=== PATIENT | female | born 1980 ===

== ENCOUNTER 2022-05-18 18:06 | Inpatient (IN) | payer OTHER, SELFPAY ==
--- NOTE | ~2022-05-18 | XR_ITS ---
EXAMINATION: XR ABDOMEN KUB CLINICAL INDICATION: Constipation COMPARISON: None TECHNIQUE: AP view of the abdomen. FINDINGS: There is large amount of stool in colon without distention. The gallbladder has been surgically removed. There is no organomegaly. There is no free air or free fluid. No gross bony abnormality. XR/XR KUB IMPRESSION: Moderate to significant constipation. No acute process seen.
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
[2022-05-18] MEDS: Gabapentin 400 MG CAPSULE 800 MG PO (21:41)
[2022-05-18] MEDS: QUEtiapine Fumarate 100 MG TABLET PO (21:41)
[2022-05-18] MEDS: Ibuprofen 600 MG TABLET PO (21:42)
[2022-05-18] MEDS: OXcarbazepine 300 MG TABLET 600 MG PO (21:42)
[2022-05-18] MEDS: Baclofen 10 MG TABLET PO (21:42)
[2022-05-18] MEDS: Topiramate 25 MG TABLET 50 MG PO (21:42)
[2022-05-18] MEDS: clonazePAM 1 MG TABLET PO (21:42)
[2022-05-18 21:53] LABS: Glucose, Whole Blood 163 mg/dL (60-115)
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
[2022-05-19 08:00] VITALS: BP 125/58; PULSE 60; RESP 18; TEMP 36.6; O2SAT 96
[2022-05-19 09:05] LABS: Glucose, Whole Blood 124 mg/dL (60-115)
--- NOTE | 2022-05-19 09:10 | HE.PHANOTE ---
RE METHADONE FORM RECEIVED FROM [facility]
[2022-05-19] MEDS: Baclofen 10 MG TABLET PO ×3 (09:34→21:06)
[2022-05-19] MEDS: Oxymetazoline HCl 0.05 % Nasal 15 ML SPRAY 2 SPRAY NOSTRIL-B (09:34)
[2022-05-19] MEDS: OXcarbazepine 300 MG TABLET 600 MG PO ×2 (09:36→21:05)
[2022-05-19] MEDS: Gabapentin 400 MG CAPSULE 800 MG PO ×3 (09:36→21:05)
[2022-05-19] MEDS: Topiramate 25 MG TABLET 50 MG PO ×2 (09:37→21:06)
[2022-05-19] MEDS: Sertraline HCL 100 MG TABLET PO (09:38)
[2022-05-19] MEDS: clonazePAM 1 MG TABLET PO ×3 (09:38→21:06)
[2022-05-19] MEDS: metFORMIN HCl 1,000 MG TABLET 1000 MG PO ×2 (09:39→16:00)
[2022-05-19] MEDS: methADONE HCl 20 MG/2 ML ORAL.CONC 125 MG PO (09:40)
[2022-05-19 09:43] LABS: Estimated Average Glucose 246 mg/dL; Hemoglobin A1c % 10.2 %
[2022-05-19 10:04] LABS: Cholesterol 95 mg/dL; HDL Cholesterol 23 mg/dL; LDL Cholesterol Calculated 57 mg/dl; Magnesium 1.8 mg/dL (1.6-2.6); Triglycerides 79 mg/dL
[2022-05-19 10:20] LABS: Free T4 (Free Thyroxine) 0.85 ng/dL (0.71-1.85)
[2022-05-19 10:52] LABS: Folate 13.1 ng/mL (> or = 4.0); Vitamin B12 1025 pg/mL (200-900)
[2022-05-19] MEDS: Ibuprofen 600 MG TABLET PO (11:09)
--- NOTE | 2022-05-19 11:47 | PC.NURSE ---
Pt was offered flu vaccine this am, and refused. States I don't want it
[2022-05-19 12:11] LABS: Glucose, Whole Blood 252 mg/dL (60-115)
[2022-05-19] MEDS: Rivaroxaban 20 MG TABLET PO (12:22)
[2022-05-19] MEDS: Insulin Glargine,Hum.rec.anlog 100 UNIT/ML 10 ML VIAL 30 UNIT SUBCUT (12:30)
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
[2022-05-19] MEDS: Nicotine Polacrilex 2 MG GUM BUCCAL (16:01)
[2022-05-19] MEDS: Insulin Lispro 100 UNIT/ML 3 ML VIAL SUBCUT ×2 (17:25→21:06)
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
[2022-05-19 20:45] VITALS: BP 120/64; PULSE 53; RESP 16; TEMP 36.3; O2SAT 98
[2022-05-19 20:55] LABS: Glucose, Whole Blood 185 mg/dL (60-115)
[2022-05-19 20:55] LABS: Glucose, Whole Blood 187 mg/dL (60-115)
[2022-05-19] MEDS: Insulin Glargine,Hum.rec.anlog 100 UNIT/ML 10 ML VIAL 16 UNIT SUBCUT (21:17)
[2022-05-20 08:20] LABS: Glucose, Whole Blood 169 mg/dL (60-115)
[2022-05-20 08:55] VITALS: BP 122/64; PULSE 70; RESP 18; TEMP 36.7; O2SAT 98
[2022-05-20] MEDS: Ondansetron ODT 4 MG TAB.RAPDIS TRANSLINGU (08:59)
[2022-05-20] MEDS: methADONE HCl 20 MG/2 ML ORAL.CONC 125 MG PO (09:02)
[2022-05-20] MEDS: Rivaroxaban 20 MG TABLET PO (09:04)
[2022-05-20] MEDS: clonazePAM 1 MG TABLET PO ×3 (09:04→21:04)
[2022-05-20] MEDS: Sertraline HCL 100 MG TABLET PO (09:04)
[2022-05-20] MEDS: Topiramate 25 MG TABLET 50 MG PO ×2 (09:05→21:04)
[2022-05-20] MEDS: metFORMIN HCl 1,000 MG TABLET 1000 MG PO ×2 (09:05→17:01)
[2022-05-20] MEDS: Baclofen 10 MG TABLET PO ×3 (09:05→21:04)
[2022-05-20] MEDS: Gabapentin 400 MG CAPSULE 800 MG PO ×3 (09:06→21:04)
[2022-05-20] MEDS: OXcarbazepine 300 MG TABLET 600 MG PO ×2 (09:06→21:04)
[2022-05-20] MEDS: Insulin Lispro 100 UNIT/ML 3 ML VIAL SUBCUT ×2 (09:16→17:16)
[2022-05-20] MEDS: Insulin Glargine,Hum.rec.anlog 100 UNIT/ML 10 ML VIAL 30 UNIT SUBCUT (09:17)
[2022-05-20 09:26] LABS: Anion Gap 12 (12-20); Blood Urea Nitrogen 8 mg/dL (9-16); Calcium 9.5 mg/dL (8.4-10.2); Carbon Dioxide 28 mmol/L (22-29); Chloride 103 mmol/L (96-108); Estimated Glomerular Filt Rate > 60; Glucose Random 153 mg/dL (60-115); Potassium 4.7 mmol/L (3.3-5.1); Sodium 138 mmol/L (135-145)
[2022-05-20] MEDS: Lactulose 20 GM/30 ML SOLUTION PO (10:14)
[2022-05-20] MEDS: Oxymetazoline HCl 0.05 % Nasal 15 ML SPRAY 2 SPRAY NOSTRIL-B (10:14)
[2022-05-20] MEDS: Ibuprofen 600 MG TABLET PO (10:14)
[2022-05-20 12:13] LABS: Glucose, Whole Blood 140 mg/dL (60-115)
[2022-05-20 12:14] LABS: HBS Num1 207.46 mIU/mL (0-7.99); HBc Num1 2.88 S/CO (0.00-0.79); HBsAGNum1 0.26 S/CO (0.00-0.99); Hepatitis B Surface Antigen Negative (Negative); ~HepC Num1 8.56 S/CO (0.00-0.79); ~Hepatitis B Surface Antibody REACTIVE (Nonreactive); ~Hepatitis C Antibody Reactive (Nonreactive)
[2022-05-20 12:30] VITALS: BP 126/65; PULSE 57; RESP 18; O2SAT 94
--- NOTE | 2022-05-20 12:38 | PC.NURSE ---
Patient bright, alert, on awakening. Began reporting some abdominal discomfort, hot flashes, and appears more sedated at this time. Repeat vitals, blood sugar checked, patient encouraged to rest in bed, which she is doing. Pranay Winters notified of change in presentation.
[2022-05-20 13:48] LABS: HBc Num2 3.27 S/CO; HBc Num3 3.38 S/CO; Hepatitis B Core Antibody Reactive (Nonreactive)
--- NOTE | 2022-05-20 15:41 | PC.NURSE ---
Мария Talley assuming patient's care.
[2022-05-20 17:11] LABS: Glucose, Whole Blood 227 mg/dL (60-115)
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
[2022-05-20] MEDS: Nicotine Polacrilex 2 MG GUM BUCCAL (18:26)
[2022-05-20 20:45] VITALS: BP 127/68; PULSE 54; RESP 16; TEMP 35.8; O2SAT 96
[2022-05-20] MEDS: QUEtiapine Fumarate 50 MG TABLET PO (21:04)
[2022-05-20 21:36] LABS: Glucose, Whole Blood 94 mg/dL (60-115)
[2022-05-21 09:02] LABS: Glucose, Whole Blood 106 mg/dL (60-115)
[2022-05-21 10:15] VITALS: BP 112/53; PULSE 53; RESP 18; TEMP 36.4; O2SAT 97
[2022-05-21] MEDS: clonazePAM 1 MG TABLET PO ×3 (10:21→21:21)
[2022-05-21] MEDS: Lactulose 20 GM/30 ML SOLUTION PO (10:21)
[2022-05-21] MEDS: Sertraline HCL 50 MG TABLET 150 MG PO (10:21)
[2022-05-21] MEDS: Topiramate 25 MG TABLET 50 MG PO ×2 (10:22→21:21)
[2022-05-21] MEDS: Gabapentin 400 MG CAPSULE 800 MG PO (10:22)
[2022-05-21] MEDS: Rivaroxaban 20 MG TABLET PO (10:22)
[2022-05-21] MEDS: OXcarbazepine 300 MG TABLET 600 MG PO ×2 (10:22→21:21)
[2022-05-21] MEDS: metFORMIN HCl 1,000 MG TABLET 1000 MG PO ×2 (10:22→18:07)
[2022-05-21] MEDS: Insulin Glargine,Hum.rec.anlog 100 UNIT/ML 10 ML VIAL 30 UNIT SUBCUT ×2 (10:26→21:27)
[2022-05-21] MEDS: Baclofen 10 MG TABLET PO ×3 (10:30→21:21)
[2022-05-21] MEDS: methADONE HCl 20 MG/2 ML ORAL.CONC 120 MG PO (11:18)
[2022-05-21] MEDS: Oxymetazoline HCl 0.05 % Nasal 15 ML SPRAY 2 SPRAY NOSTRIL-B (11:23)
[2022-05-21] MEDS: Acetaminophen 325 MG TABLET 650 MG PO (11:43)
[2022-05-21] MEDS: Ondansetron ODT 4 MG TAB.RAPDIS TRANSLINGU (11:43)
--- NOTE | 2022-05-21 12:14 | PM.EVENT ---
Event Note Date of Service: 05/21/22 Event Note: This lead technical writer called, pt has been presenting as sedated on and off during the day. She is currently on several sedating medications including methadone 125mg po daily, clonazepam 1mg po TID, Gabapentin 800mg po TID, trileptal 600mg po BID, topamax 50mg po BID. Consult was sent to addition specialist to consider decreasing methadone. This lead technical writer spoke with Brittany Chiu APRN shipping and receiving specialist- recommeds trying to decrease other medications such as gabapentin, consider reduction of clonazepam (although pt against it). Pt reports benefit from methadone, which apparently has decreased her opioid use. Pt agrees to lower gabapentin to 600mg po TID. Pt educated on risk of increase respiratory suppression specially with combination of methadone, gabapentin and clonazepam. Per Brittany Chiu, and this lead technical writer in agreement, try to keep methadone dose at current dose and decrease other sedating medications- mainly gabapentin and clonazepam but also consider trileptal and topamax (pt on 3 mood stabilizer at this point for different indications, but nonetheless sedating and interacting). PLAN- resume methadone 120mg po daily, decrease gabapentin to 600mg po TID, pt will meet with primary attending later today to further manage medications.
[2022-05-21 12:31] LABS: Glucose, Whole Blood 248 mg/dL (60-115)
[2022-05-21] MEDS: Insulin Lispro 100 UNIT/ML 3 ML VIAL SUBCUT ×3 (13:15→21:26)
[2022-05-21 13:32] LABS: Amphetamine Screen Urine Not Detected (Not Detect); Barbiturates, Urine Not Detected (Not Detect); Benzodiazepines Screen Urine POSITIVE (Not Detect); Cannabinoid Screen Urine POSITIVE (Not Detect); Cocaine Screen Urine Not Detected (Not Detect); Fentanyl, urine Not Detected (Not Detect); Opiate Screen Urine Not Detected (Not Detect); Phencyclidine Screen Urine Not Detected (Not Detect)
[2022-05-21 17:58] LABS: Glucose, Whole Blood 157 mg/dL (60-115)
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
[2022-05-21 21:09] LABS: Glucose, Whole Blood 158 mg/dL (60-115)
[2022-05-21 21:20] VITALS: BP 113/59; PULSE 63; RESP 16; TEMP 36.4; O2SAT 96
[2022-05-21] MEDS: QUEtiapine Fumarate 50 MG TABLET PO (21:21)
[2022-05-21] MEDS: cloNIDine HCL 0.1 MG TABLET PO (21:21)
[2022-05-21] MEDS: Docusate Sodium 100 MG CAPSULE PO (21:21)
[2022-05-21] MEDS: Gabapentin 300 MG CAPSULE 600 MG PO (21:21)
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
[2022-05-22 06:07] LABS: Hepatitis B Core Antibody IgM NON-REACTIVE (NON-REACTIVE)
[2022-05-22 08:31] LABS: Glucose, Whole Blood 134 mg/dL (60-115)
[2022-05-22] MEDS: Sertraline HCL 50 MG TABLET 150 MG PO (09:36)
[2022-05-22] MEDS: Lactulose 20 GM/30 ML SOLUTION PO ×2 (09:36→16:57)
[2022-05-22] MEDS: Rivaroxaban 20 MG TABLET PO (09:36)
[2022-05-22] MEDS: OXcarbazepine 300 MG TABLET 600 MG PO ×2 (09:36→21:23)
[2022-05-22] MEDS: Baclofen 10 MG TABLET PO ×3 (09:36→21:23)
[2022-05-22] MEDS: clonazePAM 1 MG TABLET PO ×3 (09:36→21:23)
[2022-05-22] MEDS: Topiramate 25 MG TABLET 50 MG PO ×2 (09:36→21:23)
[2022-05-22] MEDS: Docusate Sodium 100 MG CAPSULE PO ×2 (09:37→21:23)
[2022-05-22] MEDS: Gabapentin 300 MG CAPSULE 600 MG PO ×3 (09:37→21:23)
[2022-05-22] MEDS: methADONE HCl 20 MG/2 ML ORAL.CONC 120 MG PO (09:37)
[2022-05-22] MEDS: metFORMIN HCl 1,000 MG TABLET 1000 MG PO ×2 (09:38→16:57)
[2022-05-22] MEDS: Insulin Glargine,Hum.rec.anlog 100 UNIT/ML 10 ML VIAL 30 UNIT SUBCUT ×2 (09:50→21:26)
[2022-05-22 10:14] VITALS: BP 112/57; PULSE 52; RESP 15; TEMP 36.6; O2SAT 95
[2022-05-22 12:23] LABS: Glucose, Whole Blood 154 mg/dL (60-115)
[2022-05-22] MEDS: Insulin Lispro 100 UNIT/ML 3 ML VIAL SUBCUT (12:25)
[2022-05-22 16:30] VITALS: BP 116/56; PULSE 57; RESP 16; TEMP 36.2; O2SAT 99
[2022-05-22] MEDS: guaiFENesin DM 600/30 1 TAB TAB.ER.12H 2 TAB PO (16:56)
[2022-05-22 17:18] LABS: Glucose, Whole Blood 185 mg/dL (60-115)
[2022-05-22 18:52] VITALS: BP 114/65; PULSE 57; RESP 16; TEMP 36.4
[2022-05-22 21:15] LABS: Glucose, Whole Blood 103 mg/dL (60-115)
[2022-05-22] MEDS: Doxepin HCl 25 MG CAPSULE 50 MG PO (21:22)
[2022-05-22] MEDS: cloNIDine HCL 0.1 MG TABLET PO (21:23)
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
[2022-05-23 08:38] LABS: Glucose, Whole Blood 91 mg/dL (60-115)
[2022-05-23 09:00] VITALS: BP 94/50; PULSE 57; TEMP 36.1; O2SAT 97
[2022-05-23] MEDS: methADONE HCl 20 MG/2 ML ORAL.CONC 125 MG PO (09:29)
[2022-05-23] MEDS: Insulin Glargine,Hum.rec.anlog 100 UNIT/ML 10 ML VIAL 30 UNIT SUBCUT ×2 (09:32→21:31)
[2022-05-23] MEDS: Docusate Sodium 100 MG CAPSULE PO ×2 (09:34→21:27)
[2022-05-23] MEDS: Gabapentin 300 MG CAPSULE 600 MG PO ×3 (09:34→21:28)
[2022-05-23] MEDS: Topiramate 25 MG TABLET 50 MG PO ×2 (09:35→21:27)
[2022-05-23] MEDS: metFORMIN HCl 1,000 MG TABLET 1000 MG PO ×2 (09:35→18:09)
[2022-05-23] MEDS: Rivaroxaban 20 MG TABLET PO (09:36)
[2022-05-23] MEDS: Baclofen 10 MG TABLET PO ×3 (09:36→21:28)
[2022-05-23] MEDS: Sertraline HCL 50 MG TABLET 150 MG PO (09:37)
[2022-05-23] MEDS: OXcarbazepine 300 MG TABLET 600 MG PO ×2 (09:37→21:28)
[2022-05-23] MEDS: clonazePAM 1 MG TABLET PO ×3 (09:38→21:43)
[2022-05-23] MEDS: Ondansetron ODT 4 MG TAB.RAPDIS TRANSLINGU (11:08)
[2022-05-23 11:46] VITALS: BP 121/64
[2022-05-23 13:07] LABS: Glucose, Whole Blood 203 mg/dL (60-115)
[2022-05-23] MEDS: Insulin Lispro 100 UNIT/ML 3 ML VIAL SUBCUT ×3 (13:23→21:32)
[2022-05-23] MEDS: Milk of Magnesia 30 ML ORAL.SUSP PO (16:22)
[2022-05-23 17:47] LABS: Glucose, Whole Blood 195 mg/dL (60-115)
[2022-05-23 20:15] VITALS: BP 113/62; PULSE 60; RESP 12; TEMP 36.2; O2SAT 96
[2022-05-23 21:20] LABS: Glucose, Whole Blood 261 mg/dL (60-115)
[2022-05-23] MEDS: Doxepin HCl 25 MG CAPSULE 50 MG PO (21:27)
[2022-05-23] MEDS: cloNIDine HCL 0.1 MG TABLET PO (21:27)
[2022-05-24] MEDS: Ibuprofen 600 MG TABLET PO ×2 (02:20→11:50)
[2022-05-24] MEDS: guaiFENesin DM 600/30 1 TAB TAB.ER.12H 2 TAB PO (04:11)
[2022-05-24 08:43] LABS: Glucose, Whole Blood 172 mg/dL (60-115)
[2022-05-24 09:00] VITALS: BP 98/57; PULSE 53; RESP 18; TEMP 36.4; O2SAT 97
[2022-05-24] MEDS: Gabapentin 300 MG CAPSULE 600 MG PO ×3 (09:11→21:48)
[2022-05-24] MEDS: OXcarbazepine 300 MG TABLET 600 MG PO ×2 (09:12→21:48)
[2022-05-24] MEDS: Docusate Sodium 100 MG CAPSULE PO ×2 (09:13→21:48)
[2022-05-24] MEDS: metFORMIN HCl 1,000 MG TABLET 1000 MG PO ×2 (09:13→17:38)
[2022-05-24] MEDS: Topiramate 25 MG TABLET 50 MG PO ×2 (09:13→21:49)
[2022-05-24] MEDS: Baclofen 10 MG TABLET PO ×3 (09:14→21:49)
[2022-05-24] MEDS: Rivaroxaban 20 MG TABLET PO (09:14)
[2022-05-24] MEDS: clonazePAM 1 MG TABLET PO ×3 (09:15→21:49)
[2022-05-24] MEDS: Sertraline HCL 50 MG TABLET 150 MG PO (09:15)
[2022-05-24] MEDS: methADONE HCl 20 MG/2 ML ORAL.CONC 125 MG PO (09:16)
[2022-05-24] MEDS: Insulin Glargine,Hum.rec.anlog 100 UNIT/ML 10 ML VIAL 30 UNIT SUBCUT ×2 (09:19→21:49)
[2022-05-24] MEDS: Insulin Lispro 100 UNIT/ML 3 ML VIAL SUBCUT (09:20)
[2022-05-24 12:47] LABS: Glucose, Whole Blood 110 mg/dL (60-115)
[2022-05-24 17:15] LABS: Glucose, Whole Blood 145 mg/dL (60-115)
[2022-05-24] MEDS: Lactulose 20 GM/30 ML SOLUTION PO (17:38)
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
[2022-05-24 21:45] VITALS: BP 131/71; PULSE 78; RESP 16; TEMP 36.4; O2SAT 95
[2022-05-24 21:47] LABS: Glucose, Whole Blood 162 mg/dL (60-115)
[2022-05-24] MEDS: cloNIDine HCL 0.1 MG TABLET PO (21:48)
[2022-05-24] MEDS: Doxepin HCl 25 MG CAPSULE 75 MG PO (21:49)
[2022-05-25 06:00] VITALS: BP 110/51; PULSE 76; RESP 16; TEMP 36.6; O2SAT 100
[2022-05-25 08:38] LABS: Glucose, Whole Blood 151 mg/dL (60-115)
[2022-05-25] MEDS: Sertraline HCL 50 MG TABLET 150 MG PO (09:22)
[2022-05-25] MEDS: Baclofen 10 MG TABLET PO ×3 (09:23→22:05)
[2022-05-25] MEDS: Gabapentin 300 MG CAPSULE 600 MG PO ×3 (09:23→22:05)
[2022-05-25] MEDS: clonazePAM 1 MG TABLET PO ×3 (09:23→22:05)
[2022-05-25] MEDS: Docusate Sodium 100 MG CAPSULE PO ×2 (09:23→22:10)
[2022-05-25] MEDS: metFORMIN HCl 1,000 MG TABLET 1000 MG PO ×2 (09:23→16:29)
[2022-05-25] MEDS: OXcarbazepine 300 MG TABLET 600 MG PO ×2 (09:23→22:05)
[2022-05-25] MEDS: Rivaroxaban 20 MG TABLET PO (09:23)
[2022-05-25] MEDS: Topiramate 25 MG TABLET 50 MG PO ×2 (09:23→22:04)
[2022-05-25] MEDS: methADONE HCl 20 MG/2 ML ORAL.CONC 125 MG PO (09:24)
[2022-05-25] MEDS: Lactulose 20 GM/30 ML SOLUTION PO ×2 (09:24→16:29)
[2022-05-25] MEDS: Insulin Lispro 100 UNIT/ML 3 ML VIAL SUBCUT ×3 (09:56→18:27)
[2022-05-25] MEDS: Insulin Glargine,Hum.rec.anlog 100 UNIT/ML 10 ML VIAL 30 UNIT SUBCUT ×2 (09:57→22:08)
[2022-05-25] MEDS: Ondansetron ODT 4 MG TAB.RAPDIS TRANSLINGU (10:04)
[2022-05-25] MEDS: Ipratropium Bromide Nas 0.03 % 30 ML SPRAY 2 SPRAY NOSTRIL-B ×2 (10:37→16:21)
[2022-05-25 12:43] LABS: Glucose, Whole Blood 156 mg/dL (60-115)
[2022-05-25 18:00] LABS: Glucose, Whole Blood 170 mg/dL (60-115)
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
[2022-05-25 20:30] VITALS: BP 121/64; PULSE 79; RESP 16; TEMP 36.7; O2SAT 98
[2022-05-25] MEDS: Melatonin 3 MG TABLET 6 MG PO (22:05)
[2022-05-25] MEDS: cloNIDine HCL 0.1 MG TABLET PO (22:05)
[2022-05-25] MEDS: Doxepin HCl 25 MG CAPSULE 75 MG PO (22:05)
[2022-05-26 08:15] VITALS: BP 103/59; PULSE 52; RESP 12; TEMP 36.3; O2SAT 96
[2022-05-26] MEDS: Insulin Glargine,Hum.rec.anlog 100 UNIT/ML 10 ML VIAL 30 UNIT SUBCUT ×3 (10:17→21:10)
[2022-05-26] MEDS: Ipratropium Bromide Nas 0.03 % 30 ML SPRAY 2 SPRAY NOSTRIL-B ×2 (10:18→14:59)
[2022-05-26] MEDS: methADONE HCl 20 MG/2 ML ORAL.CONC 125 MG PO (10:20)
[2022-05-26] MEDS: Topiramate 25 MG TABLET 50 MG PO ×2 (10:25→20:57)
[2022-05-26] MEDS: Rivaroxaban 20 MG TABLET PO (10:25)
[2022-05-26] MEDS: OXcarbazepine 300 MG TABLET 600 MG PO ×2 (10:26→20:58)
[2022-05-26] MEDS: Baclofen 10 MG TABLET PO ×3 (10:26→20:58)
[2022-05-26] MEDS: clonazePAM 1 MG TABLET PO ×3 (10:27→20:58)
[2022-05-26] MEDS: metFORMIN HCl 1,000 MG TABLET 1000 MG PO ×2 (10:27→17:27)
[2022-05-26] MEDS: Gabapentin 300 MG CAPSULE 600 MG PO ×3 (10:27→20:58)
[2022-05-26] MEDS: Dextroamphetamine/Amphetamine XR 10 MG CAP.ER.24H PO (10:28)
[2022-05-26] MEDS: Docusate Sodium 100 MG CAPSULE PO ×2 (10:28→20:57)
[2022-05-26] MEDS: Sertraline HCL 50 MG TABLET 150 MG PO (10:29)
[2022-05-26 12:10] LABS: Glucose, Whole Blood 248 mg/dL (60-115)
[2022-05-26 12:10] LABS: Glucose, Whole Blood 93 mg/dL (60-115)
[2022-05-26] MEDS: Insulin Lispro 100 UNIT/ML 3 ML VIAL SUBCUT ×2 (12:15→21:03)
[2022-05-26] MEDS: Lactulose 20 GM/30 ML SOLUTION PO ×2 (12:20→17:28)
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
[2022-05-26 17:47] LABS: Glucose, Whole Blood 95 mg/dL (60-115)
[2022-05-26 20:40] VITALS: BP 120/65; PULSE 79; RESP 16; TEMP 36.4; O2SAT 97
[2022-05-26 20:48] LABS: Glucose, Whole Blood 175 mg/dL (60-115)
[2022-05-26] MEDS: cloNIDine HCL 0.1 MG TABLET PO (20:57)
[2022-05-26] MEDS: Melatonin 3 MG TABLET 6 MG PO (20:57)
[2022-05-26] MEDS: Doxepin HCl 25 MG CAPSULE 75 MG PO (20:58)
[2022-05-26] MEDS: Ibuprofen 600 MG TABLET PO (20:58)
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
[2022-05-27 08:42] LABS: Estimated Glomerular Filt Rate > 60
[2022-05-27 09:00] VITALS: BP 108/61; PULSE 51; RESP 18; TEMP 36.6; O2SAT 97
[2022-05-27 09:00] LABS: Glucose, Whole Blood 109 mg/dL (60-115)
[2022-05-27] MEDS: OXcarbazepine 300 MG TABLET 600 MG PO ×2 (09:17→22:12)
[2022-05-27] MEDS: Gabapentin 300 MG CAPSULE 600 MG PO ×3 (09:17→22:10)
[2022-05-27] MEDS: Topiramate 25 MG TABLET 50 MG PO ×2 (09:18→22:12)
[2022-05-27] MEDS: metFORMIN HCl 1,000 MG TABLET 1000 MG PO ×2 (09:18→17:58)
[2022-05-27] MEDS: Sertraline HCL 50 MG TABLET 150 MG PO (09:19)
[2022-05-27] MEDS: Dextroamphetamine/Amphetamine XR 10 MG CAP.ER.24H PO (09:19)
[2022-05-27] MEDS: Rivaroxaban 20 MG TABLET PO (09:20)
[2022-05-27] MEDS: Baclofen 10 MG TABLET PO ×3 (09:20→22:09)
[2022-05-27] MEDS: clonazePAM 1 MG TABLET PO ×3 (09:20→22:10)
[2022-05-27] MEDS: Docusate Sodium 100 MG CAPSULE PO ×2 (09:20→22:10)
[2022-05-27] MEDS: methADONE HCl 20 MG/2 ML ORAL.CONC 125 MG PO (09:26)
[2022-05-27] MEDS: Insulin Glargine,Hum.rec.anlog 100 UNIT/ML 10 ML VIAL 30 UNIT SUBCUT ×2 (09:33→22:15)
[2022-05-27 12:10] LABS: Glucose, Whole Blood 211 mg/dL (60-115)
[2022-05-27] MEDS: Insulin Lispro 100 UNIT/ML 3 ML VIAL SUBCUT ×3 (12:57→22:13)
[2022-05-27 17:15] LABS: Glucose, Whole Blood 211 mg/dL (60-115)
[2022-05-27] MEDS: Lactulose 20 GM/30 ML SOLUTION PO (17:58)
[2022-05-27 19:57] VITALS: BP 129/70; PULSE 84; RESP 16; TEMP 36.7; O2SAT 98
[2022-05-27 21:23] LABS: Glucose, Whole Blood 199 mg/dL (60-115)
[2022-05-27] MEDS: cloNIDine HCL 0.1 MG TABLET PO (22:10)
[2022-05-27] MEDS: Doxepin HCl 25 MG CAPSULE 75 MG PO (22:11)
[2022-05-27] MEDS: Melatonin 3 MG TABLET 6 MG PO (22:12)
[2022-05-27] MEDS: Ipratropium Bromide Nas 0.03 % 30 ML SPRAY 2 SPRAY NOSTRIL-B (22:18)
[2022-05-27 22:25] VITALS: BP 126/68; PULSE 80; RESP 16
[2022-05-28 06:00] VITALS: BP 126/70; PULSE 80; RESP 18; TEMP 36.8; O2SAT 98
[2022-05-28 09:13] LABS: Glucose, Whole Blood 156 mg/dL (60-115)
[2022-05-28] MEDS: methADONE HCl 20 MG/2 ML ORAL.CONC 125 MG PO (09:18)
[2022-05-28] MEDS: Insulin Glargine,Hum.rec.anlog 100 UNIT/ML 10 ML VIAL 30 UNIT SUBCUT ×2 (09:21→20:28)
[2022-05-28] MEDS: Baclofen 10 MG TABLET PO ×3 (09:22→21:59)
[2022-05-28] MEDS: Dextroamphetamine/Amphetamine XR 10 MG CAP.ER.24H PO (09:22)
[2022-05-28] MEDS: Rivaroxaban 20 MG TABLET PO (09:22)
[2022-05-28] MEDS: metFORMIN HCl 1,000 MG TABLET 1000 MG PO ×2 (09:22→18:50)
[2022-05-28] MEDS: Sertraline HCL 50 MG TABLET 150 MG PO (09:22)
[2022-05-28] MEDS: clonazePAM 1 MG TABLET PO ×3 (09:22→20:30)
[2022-05-28] MEDS: Topiramate 25 MG TABLET 50 MG PO ×2 (09:22→20:30)
[2022-05-28] MEDS: Gabapentin 300 MG CAPSULE 600 MG PO ×3 (09:22→20:28)
[2022-05-28] MEDS: Docusate Sodium 100 MG CAPSULE PO ×2 (09:23→20:30)
[2022-05-28] MEDS: OXcarbazepine 300 MG TABLET 600 MG PO ×2 (09:23→20:29)
[2022-05-28 12:30] LABS: Glucose, Whole Blood 178 mg/dL (60-115)
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
[2022-05-28] MEDS: Ipratropium Bromide Nas 0.03 % 30 ML SPRAY 2 SPRAY NOSTRIL-B ×2 (14:13→20:55)
[2022-05-28 17:24] LABS: Glucose, Whole Blood 131 mg/dL (60-115)
[2022-05-28] MEDS: Ibuprofen 600 MG TABLET PO (18:49)
[2022-05-28] MEDS: Acetaminophen 325 MG TABLET 650 MG PO (18:50)
[2022-05-28] MEDS: Lactulose 20 GM/30 ML SOLUTION PO (18:50)
[2022-05-28 20:20] VITALS: BP 145/52; PULSE 62; RESP 18; TEMP 36.4; O2SAT 95
[2022-05-28 20:22] LABS: Glucose, Whole Blood 140 mg/dL (60-115)
[2022-05-28] MEDS: Melatonin 3 MG TABLET 6 MG PO ×2 (20:28→23:58)
[2022-05-28] MEDS: cloNIDine HCL 0.1 MG TABLET PO (20:29)
[2022-05-28] MEDS: Doxepin HCl 25 MG CAPSULE 75 MG PO (20:29)
[2022-05-28] MEDS: hydrOXYzine HCL 25 MG TABLET PO (23:58)
[2022-05-29 08:45] VITALS: BP 122/65; PULSE 58; RESP 16; TEMP 36.6; O2SAT 97
[2022-05-29 09:38] LABS: Glucose, Whole Blood 95 mg/dL (60-115)
[2022-05-29] MEDS: Insulin Glargine,Hum.rec.anlog 100 UNIT/ML 10 ML VIAL 30 UNIT SUBCUT ×2 (09:42→23:23)
[2022-05-29] MEDS: Lactulose 20 GM/30 ML SOLUTION PO (09:43)
[2022-05-29] MEDS: methADONE HCl 20 MG/2 ML ORAL.CONC 125 MG PO (09:43)
[2022-05-29] MEDS: OXcarbazepine 300 MG TABLET 600 MG PO ×2 (09:44→23:25)
[2022-05-29] MEDS: Topiramate 25 MG TABLET 50 MG PO ×2 (09:45→23:26)
[2022-05-29] MEDS: Dextroamphetamine/Amphetamine XR 10 MG CAP.ER.24H PO (09:45)
[2022-05-29] MEDS: Docusate Sodium 100 MG CAPSULE PO ×2 (09:45→23:25)
[2022-05-29] MEDS: metFORMIN HCl 1,000 MG TABLET 1000 MG PO ×2 (09:45→17:59)
[2022-05-29] MEDS: Baclofen 10 MG TABLET PO ×3 (09:45→23:27)
[2022-05-29] MEDS: Sertraline HCL 50 MG TABLET 150 MG PO (09:45)
[2022-05-29] MEDS: Rivaroxaban 20 MG TABLET PO (09:45)
[2022-05-29] MEDS: Gabapentin 300 MG CAPSULE 600 MG PO ×3 (10:15→23:27)
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
[2022-05-29] MEDS: Ipratropium Bromide Nas 0.03 % 30 ML SPRAY 2 SPRAY NOSTRIL-B ×2 (11:58→23:41)
[2022-05-29] MEDS: clonazePAM 1 MG TABLET PO ×3 (11:58→23:27)
[2022-05-29 13:15] LABS: Glucose, Whole Blood 241 mg/dL (60-115)
[2022-05-29] MEDS: Insulin Lispro 100 UNIT/ML 3 ML VIAL SUBCUT (13:48)
[2022-05-29 17:34] LABS: Glucose, Whole Blood 115 mg/dL (60-115)
--- NOTE | 2022-05-29 17:52 | PC.NURSE ---
During checks this afternoon [facility] found a disposable shipping order clerk on pt's dresser in plain sight. I informed pt that the shipping order clerk was confiscated and placed in her belongings for safety. She stated that she never had a shipping order clerk. None was found on her inventory list. Her roommate, however, did have a shipping order clerk on her inventory list. Patient consented to room search and observed this nurse as room search was completed. No further contraband was located. Pt stated, If I wanted a shipping order clerk I wouldn't have left it out where people could see it. I'm not stupid.
[2022-05-29] MEDS: Omeprazole 20 MG CAPSULE.DR PO (17:54)
[2022-05-29 23:15] VITALS: BP 118/61; PULSE 65; RESP 18; TEMP 36.4; O2SAT 96
[2022-05-29 23:22] LABS: Glucose, Whole Blood 133 mg/dL (60-115)
[2022-05-29] MEDS: cloNIDine HCL 0.1 MG TABLET PO (23:24)
[2022-05-29] MEDS: Melatonin 3 MG TABLET 6 MG PO (23:26)
[2022-05-29] MEDS: Doxepin HCl 25 MG CAPSULE 75 MG PO (23:26)
[2022-05-29] MEDS: Ibuprofen 600 MG TABLET PO (23:27)
[2022-05-30] MEDS: Omeprazole 20 MG CAPSULE.DR PO ×2 (07:13→17:50)
[2022-05-30 08:15] VITALS: BP 120/68; PULSE 56; RESP 16; TEMP 36.3; O2SAT 99
[2022-05-30] MEDS: Docusate Sodium 100 MG CAPSULE PO ×2 (08:35→22:02)
[2022-05-30] MEDS: clonazePAM 1 MG TABLET PO ×3 (08:35→22:00)
[2022-05-30] MEDS: Sertraline HCL 50 MG TABLET 150 MG PO (08:35)
[2022-05-30] MEDS: Dextroamphetamine/Amphetamine XR 10 MG CAP.ER.24H PO (08:35)
[2022-05-30] MEDS: Topiramate 25 MG TABLET 50 MG PO ×2 (08:35→22:01)
[2022-05-30] MEDS: Rivaroxaban 20 MG TABLET PO (08:35)
[2022-05-30] MEDS: Baclofen 10 MG TABLET PO ×3 (08:35→22:01)
[2022-05-30] MEDS: metFORMIN HCl 1,000 MG TABLET 1000 MG PO ×2 (08:35→17:51)
[2022-05-30] MEDS: Gabapentin 300 MG CAPSULE 600 MG PO ×3 (08:36→22:01)
[2022-05-30] MEDS: Lactulose 20 GM/30 ML SOLUTION PO ×2 (08:36→17:50)
[2022-05-30] MEDS: OXcarbazepine 300 MG TABLET 600 MG PO ×2 (08:36→22:00)
[2022-05-30] MEDS: methADONE HCl 20 MG/2 ML ORAL.CONC 125 MG PO (08:45)
[2022-05-30] MEDS: Insulin Glargine,Hum.rec.anlog 100 UNIT/ML 10 ML VIAL 30 UNIT SUBCUT ×2 (08:53→22:05)
[2022-05-30 08:55] LABS: Glucose, Whole Blood 100 mg/dL (60-115)
[2022-05-30] MEDS: Ipratropium Bromide Nas 0.03 % 30 ML SPRAY 2 SPRAY NOSTRIL-B ×2 (08:55→22:07)
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
[2022-05-30 12:39] LABS: Glucose, Whole Blood 172 mg/dL (60-115)
[2022-05-30 17:47] LABS: Glucose, Whole Blood 229 mg/dL (60-115)
[2022-05-30] MEDS: Insulin Lispro 100 UNIT/ML 3 ML VIAL SUBCUT ×2 (17:51→22:04)
[2022-05-30 21:50] LABS: Glucose, Whole Blood 230 mg/dL (60-115)
[2022-05-30] MEDS: Melatonin 3 MG TABLET 6 MG PO (21:59)
[2022-05-30 22:00] VITALS: BP 126/60; PULSE 62; RESP 16; TEMP 36.6; O2SAT 97
[2022-05-30] MEDS: QUEtiapine Fumarate 100 MG TABLET PO (22:02)
[2022-05-30] MEDS: cloNIDine HCL 0.1 MG TABLET PO (22:02)
[2022-05-30] MEDS: Ibuprofen 600 MG TABLET PO (22:04)
[2022-05-31] MEDS: Omeprazole 20 MG CAPSULE.DR PO ×2 (06:05→17:47)
[2022-05-31 08:39] LABS: Glucose, Whole Blood 157 mg/dL (60-115)
[2022-05-31] MEDS: Insulin Glargine,Hum.rec.anlog 100 UNIT/ML 10 ML VIAL 30 UNIT SUBCUT ×2 (09:15→22:22)
[2022-05-31] MEDS: Lactulose 20 GM/30 ML SOLUTION PO ×2 (09:15→17:47)
[2022-05-31] MEDS: OXcarbazepine 300 MG TABLET 600 MG PO ×2 (09:15→22:17)
[2022-05-31] MEDS: metFORMIN HCl 1,000 MG TABLET 1000 MG PO ×2 (09:15→17:40)
[2022-05-31] MEDS: Docusate Sodium 100 MG CAPSULE PO (09:16)
[2022-05-31] MEDS: clonazePAM 1 MG TABLET PO ×3 (09:16→22:19)
[2022-05-31] MEDS: Rivaroxaban 20 MG TABLET PO (09:16)
[2022-05-31] MEDS: Dextroamphetamine/Amphetamine XR 10 MG CAP.ER.24H PO (09:16)
[2022-05-31] MEDS: Sertraline HCL 50 MG TABLET 150 MG PO (09:16)
[2022-05-31] MEDS: Topiramate 25 MG TABLET 50 MG PO ×2 (09:16→22:18)
[2022-05-31] MEDS: Gabapentin 300 MG CAPSULE 600 MG PO ×2 (09:16→15:38)
[2022-05-31] MEDS: Baclofen 10 MG TABLET PO ×3 (09:16→22:19)
[2022-05-31 09:55] VITALS: PULSE 84; RESP 15; TEMP 36.6; O2SAT 97
[2022-05-31] MEDS: Ipratropium Bromide Nas 0.03 % 30 ML SPRAY 2 SPRAY NOSTRIL-B ×2 (10:31→22:23)
[2022-05-31] MEDS: methADONE HCl 20 MG/2 ML ORAL.CONC 125 MG PO (10:45)
[2022-05-31 12:30] LABS: Glucose, Whole Blood 151 mg/dL (60-115)
[2022-05-31 17:24] LABS: Glucose, Whole Blood 146 mg/dL (60-115)
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
[2022-05-31 19:59] LABS: Alanine Aminotransferase 113 U/L (0-31); Albumin Level 3.9 g/dL (3.5-5.0); Alkaline Phosphatase 118 U/L (39-117); Anion Gap 15 (12-20); Aspartate Amino Transferase 120 U/L (5-31); Bilirubin Total 0.2 mg/dL (0.0-1.0); Blood Urea Nitrogen 8 mg/dL (9-16); Calcium 9.3 mg/dL (8.4-10.2); Carbon Dioxide 23 mmol/L (22-29); Chloride 104 mmol/L (96-108); Estimated Glomerular Filt Rate > 60; Glucose Fasting 190 mg/dL (60-99); Sodium 138 mmol/L (135-145); Total Protein 7.7 g/dL (6.5-8.0)
[2022-05-31] MEDS: bisacodyL 10 MG SUPP.RECT PR (20:44)
[2022-05-31 22:00] LABS: Glucose, Whole Blood 194 mg/dL (60-115)
[2022-05-31 22:15] VITALS: BP 108/64; PULSE 72; RESP 16; TEMP 36.3; O2SAT 100
[2022-05-31] MEDS: cloNIDine HCL 0.1 MG TABLET PO (22:17)
[2022-05-31] MEDS: Gabapentin 300 MG CAPSULE 900 MG PO (22:18)
[2022-05-31] MEDS: Sennosides/Docusate Sodium TABLET 2 TAB PO (22:18)
[2022-05-31] MEDS: Melatonin 3 MG TABLET 6 MG PO (22:19)
[2022-05-31] MEDS: QUEtiapine Fumarate 100 MG TABLET PO (22:20)
[2022-05-31] MEDS: Carbamide Peroxide 6.5% Otic 15 ML DRPBTL 5 DROP EAR-BOTH (22:24)
[2022-06-01 08:40] LABS: Glucose, Whole Blood 124 mg/dL (60-115)
[2022-06-01 08:58] VITALS: BP 127/67; PULSE 60; RESP 15; TEMP 36.2; O2SAT 95
[2022-06-01] MEDS: OXcarbazepine 300 MG TABLET 600 MG PO ×2 (09:10→22:08)
[2022-06-01] MEDS: Sertraline HCL 50 MG TABLET 150 MG PO (09:10)
[2022-06-01] MEDS: Omeprazole 20 MG CAPSULE.DR PO ×2 (09:10→18:12)
[2022-06-01] MEDS: Rivaroxaban 20 MG TABLET PO (09:11)
[2022-06-01] MEDS: clonazePAM 1 MG TABLET PO ×3 (09:11→22:09)
[2022-06-01] MEDS: metFORMIN HCl 1,000 MG TABLET 1000 MG PO ×2 (09:11→18:12)
[2022-06-01] MEDS: Dextroamphetamine/Amphetamine XR 10 MG CAP.ER.24H 20 MG PO (09:11)
[2022-06-01] MEDS: Sennosides/Docusate Sodium TABLET 2 TAB PO ×2 (09:11→22:08)
[2022-06-01] MEDS: Gabapentin 400 MG CAPSULE PO (09:12)
[2022-06-01] MEDS: Insulin Glargine,Hum.rec.anlog 100 UNIT/ML 10 ML VIAL 30 UNIT SUBCUT ×2 (09:12→22:11)
[2022-06-01] MEDS: Topiramate 25 MG TABLET 50 MG PO ×2 (09:12→22:07)
[2022-06-01] MEDS: Baclofen 10 MG TABLET PO ×3 (09:12→22:07)
[2022-06-01] MEDS: methADONE HCl 20 MG/2 ML ORAL.CONC 125 MG PO (09:15)
[2022-06-01] MEDS: Ondansetron ODT 4 MG TAB.RAPDIS TRANSLINGU (12:16)
[2022-06-01 12:31] LABS: Glucose, Whole Blood 120 mg/dL (60-115)
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
[2022-06-01] MEDS: Lactulose 20 GM/30 ML SOLUTION PO (18:12)
[2022-06-01 18:21] LABS: Glucose, Whole Blood 179 mg/dL (60-115)
[2022-06-01 20:00] VITALS: BP 107/51; PULSE 65; RESP 18; TEMP 36.6; O2SAT 98
[2022-06-01 20:21] LABS: Glucose, Whole Blood 173 mg/dL (60-115)
[2022-06-01] MEDS: QUEtiapine Fumarate 50 MG TABLET PO (22:08)
[2022-06-01] MEDS: cloNIDine HCL 0.1 MG TABLET PO (22:08)
[2022-06-01] MEDS: Gabapentin 300 MG CAPSULE 600 MG PO (22:09)
[2022-06-01] MEDS: Insulin Lispro 100 UNIT/ML 3 ML VIAL SUBCUT (22:09)
[2022-06-01] MEDS: Melatonin 3 MG TABLET 6 MG PO (22:09)
[2022-06-02 09:12] LABS: Glucose, Whole Blood 254 mg/dL (60-115)
[2022-06-02] MEDS: Sennosides/Docusate Sodium TABLET 2 TAB PO ×2 (09:56→22:40)
[2022-06-02] MEDS: Gabapentin 400 MG CAPSULE PO ×2 (09:56→15:15)
[2022-06-02] MEDS: metFORMIN HCl 1,000 MG TABLET 1000 MG PO ×2 (09:56→17:35)
[2022-06-02] MEDS: Omeprazole 20 MG CAPSULE.DR PO ×2 (09:56→17:35)
[2022-06-02] MEDS: Rivaroxaban 20 MG TABLET PO (09:56)
[2022-06-02] MEDS: OXcarbazepine 300 MG TABLET 600 MG PO ×2 (09:56→22:40)
[2022-06-02] MEDS: Dextroamphetamine/Amphetamine XR 10 MG CAP.ER.24H 20 MG PO (09:56)
[2022-06-02] MEDS: clonazePAM 1 MG TABLET PO ×3 (09:57→22:40)
[2022-06-02] MEDS: Baclofen 10 MG TABLET PO ×3 (09:57→22:40)
[2022-06-02] MEDS: Venlafaxine HCl ER 150 MG CAP.ER.24H PO (09:57)
[2022-06-02] MEDS: Topiramate 25 MG TABLET 50 MG PO ×2 (09:58→22:40)
[2022-06-02 10:00] VITALS: BP 137/83; PULSE 70; RESP 18; TEMP 36.6; O2SAT 96
[2022-06-02] MEDS: Insulin Lispro 100 UNIT/ML 3 ML VIAL SUBCUT ×2 (10:22→22:44)
[2022-06-02] MEDS: Insulin Glargine,Hum.rec.anlog 100 UNIT/ML 10 ML VIAL 30 UNIT SUBCUT ×2 (10:25→22:44)
[2022-06-02] MEDS: methADONE HCl 20 MG/2 ML ORAL.CONC 125 MG PO (10:28)
[2022-06-02] MEDS: Carbamide Peroxide 6.5% Otic 15 ML DRPBTL 5 DROP EAR-BOTH (10:30)
[2022-06-02 12:37] LABS: Glucose, Whole Blood 167 mg/dL (60-115)
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
[2022-06-02 17:42] LABS: Glucose, Whole Blood 126 mg/dL (60-115)
[2022-06-02] MEDS: bisacodyL 10 MG SUPP.RECT PR (19:34)
[2022-06-02 22:25] VITALS: BP 151/82; PULSE 77; RESP 18; TEMP 36.3; O2SAT 97
[2022-06-02 22:35] LABS: Glucose, Whole Blood 215 mg/dL (60-115)
[2022-06-02] MEDS: Gabapentin 300 MG CAPSULE 600 MG PO (22:39)
[2022-06-02] MEDS: cloNIDine HCL 0.1 MG TABLET PO (22:40)
[2022-06-02] MEDS: QUEtiapine Fumarate 50 MG TABLET PO (22:40)
[2022-06-02] MEDS: Melatonin 3 MG TABLET 6 MG PO (22:40)
[2022-06-03] MEDS: Omeprazole 20 MG CAPSULE.DR PO ×2 (09:20→17:39)
[2022-06-03 09:29] LABS: Glucose, Whole Blood 70 mg/dL (60-115)
[2022-06-03 10:23] VITALS: BP 108/73; PULSE 94; RESP 16; TEMP 36.2; O2SAT 94
[2022-06-03] MEDS: Rivaroxaban 20 MG TABLET PO (10:52)
[2022-06-03] MEDS: clonazePAM 1 MG TABLET PO ×3 (10:52→22:03)
[2022-06-03] MEDS: Venlafaxine HCl ER 150 MG CAP.ER.24H PO (10:52)
[2022-06-03] MEDS: Gabapentin 400 MG CAPSULE PO ×2 (10:52→13:36)
[2022-06-03] MEDS: Baclofen 10 MG TABLET PO ×3 (10:52→22:03)
[2022-06-03] MEDS: OXcarbazepine 300 MG TABLET 600 MG PO ×2 (10:52→22:03)
[2022-06-03] MEDS: Sennosides/Docusate Sodium TABLET 2 TAB PO ×2 (10:52→22:02)
[2022-06-03] MEDS: Topiramate 25 MG TABLET 50 MG PO ×2 (10:52→22:03)
[2022-06-03] MEDS: Dextroamphetamine/Amphetamine XR 10 MG CAP.ER.24H 20 MG PO (10:53)
[2022-06-03] MEDS: metFORMIN HCl 1,000 MG TABLET 1000 MG PO ×2 (10:53→18:00)
[2022-06-03] MEDS: methADONE HCl 20 MG/2 ML ORAL.CONC 125 MG PO (10:54)
[2022-06-03] MEDS: Insulin Glargine,Hum.rec.anlog 100 UNIT/ML 10 ML VIAL 30 UNIT SUBCUT ×2 (10:55→22:03)
[2022-06-03] MEDS: Mineral Oil/Petrolatum,White 106 GM Tube 1 APPL TOPICAL (12:10)
[2022-06-03 12:49] LABS: Glucose, Whole Blood 259 mg/dL (60-115)
[2022-06-03] MEDS: Insulin Lispro 100 UNIT/ML 3 ML VIAL SUBCUT (13:00)
[2022-06-03 17:45] LABS: Glucose, Whole Blood 101 mg/dL (60-115)
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
[2022-06-03 21:50] VITALS: BP 143/92; PULSE 86; RESP 18; TEMP 36.6; O2SAT 96
[2022-06-03 22:02] LABS: Glucose, Whole Blood 181 mg/dL (60-115)
[2022-06-03] MEDS: Gabapentin 300 MG CAPSULE 600 MG PO (22:02)
[2022-06-03] MEDS: cloNIDine HCL 0.1 MG TABLET PO (22:03)
[2022-06-03] MEDS: Melatonin 3 MG TABLET 6 MG PO (22:03)
[2022-06-03] MEDS: QUEtiapine Fumarate 50 MG TABLET PO (22:03)
[2022-06-04] MEDS: Ibuprofen 600 MG TABLET PO ×3 (00:03→21:57)
[2022-06-04 09:13] LABS: Glucose, Whole Blood 113 mg/dL (60-115)
[2022-06-04] MEDS: Omeprazole 20 MG CAPSULE.DR PO ×2 (09:22→17:40)
[2022-06-04 09:45] VITALS: BP 120/64; PULSE 53; RESP 18; TEMP 36.4; O2SAT 98
[2022-06-04] MEDS: Insulin Glargine,Hum.rec.anlog 100 UNIT/ML 10 ML VIAL 30 UNIT SUBCUT ×2 (10:22→21:55)
[2022-06-04] MEDS: Topiramate 25 MG TABLET 50 MG PO ×2 (10:23→21:58)
[2022-06-04] MEDS: Lactulose 20 GM/30 ML SOLUTION PO (10:23)
[2022-06-04] MEDS: Dextroamphetamine/Amphetamine XR 10 MG CAP.ER.24H 20 MG PO (10:23)
[2022-06-04] MEDS: Rivaroxaban 20 MG TABLET PO (10:24)
[2022-06-04] MEDS: Baclofen 10 MG TABLET PO ×3 (10:24→21:57)
[2022-06-04] MEDS: OXcarbazepine 300 MG TABLET 600 MG PO ×2 (10:24→21:58)
[2022-06-04] MEDS: clonazePAM 1 MG TABLET PO ×3 (10:24→21:57)
[2022-06-04] MEDS: Venlafaxine HCl ER 150 MG CAP.ER.24H PO (10:24)
[2022-06-04] MEDS: Gabapentin 400 MG CAPSULE PO ×2 (10:24→14:00)
[2022-06-04] MEDS: Sennosides/Docusate Sodium TABLET 2 TAB PO ×2 (10:24→21:58)
[2022-06-04] MEDS: metFORMIN HCl 1,000 MG TABLET 1000 MG PO ×2 (10:25→17:40)
[2022-06-04] MEDS: methADONE HCl 20 MG/2 ML ORAL.CONC 125 MG PO (10:29)
[2022-06-04] MEDS: Ondansetron ODT 4 MG TAB.RAPDIS TRANSLINGU (11:54)
[2022-06-04 12:48] LABS: Glucose, Whole Blood 175 mg/dL (60-115)
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
[2022-06-04 17:41] LABS: Glucose, Whole Blood 135 mg/dL (60-115)
[2022-06-04 21:51] LABS: Glucose, Whole Blood 125 mg/dL (60-115)
[2022-06-04] MEDS: Carbamide Peroxide 6.5% Otic 15 ML DRPBTL 5 DROP EAR-BOTH (21:57)
[2022-06-04] MEDS: Melatonin 3 MG TABLET 6 MG PO (21:57)
[2022-06-04] MEDS: Gabapentin 300 MG CAPSULE 600 MG PO (21:58)
[2022-06-04] MEDS: cloNIDine HCL 0.1 MG TABLET PO (21:58)
[2022-06-04] MEDS: QUEtiapine Fumarate 50 MG TABLET PO (21:59)
[2022-06-04 22:04] VITALS: BP 126/78; PULSE 90; TEMP 36.2; O2SAT 97
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
[2022-06-05 09:24] LABS: Glucose, Whole Blood 130 mg/dL (60-115)
[2022-06-05] MEDS: methADONE HCl 20 MG/2 ML ORAL.CONC 125 MG PO (11:10)
[2022-06-05] MEDS: Dextroamphetamine/Amphetamine XR 10 MG CAP.ER.24H 30 MG PO (11:11)
[2022-06-05] MEDS: Gabapentin 400 MG CAPSULE PO ×2 (11:11→14:23)
[2022-06-05] MEDS: Venlafaxine HCl ER 150 MG CAP.ER.24H PO (11:12)
[2022-06-05] MEDS: metFORMIN HCl 1,000 MG TABLET 1000 MG PO ×2 (11:12→18:39)
[2022-06-05] MEDS: Baclofen 10 MG TABLET PO ×3 (11:12→22:48)
[2022-06-05] MEDS: Sennosides/Docusate Sodium TABLET 2 TAB PO ×2 (11:12→22:48)
[2022-06-05] MEDS: Omeprazole 20 MG CAPSULE.DR PO ×2 (11:13→18:39)
[2022-06-05] MEDS: Topiramate 25 MG TABLET 50 MG PO ×2 (11:13→22:47)
[2022-06-05] MEDS: clonazePAM 1 MG TABLET PO ×3 (11:13→22:48)
[2022-06-05] MEDS: Rivaroxaban 20 MG TABLET PO (11:13)
[2022-06-05] MEDS: OXcarbazepine 300 MG TABLET 600 MG PO ×2 (11:14→22:47)
[2022-06-05] MEDS: Insulin Glargine,Hum.rec.anlog 100 UNIT/ML 10 ML VIAL 30 UNIT SUBCUT ×2 (11:17→22:57)
[2022-06-05 13:43] LABS: Glucose, Whole Blood 145 mg/dL (60-115)
[2022-06-05 14:09] LABS: HCV Log PCR 6.93 Log IU/mL (NOT DETECTED); HepC Viral Load 8420000 IU/mL (NOT DETECTED)
[2022-06-05] MEDS: Lactulose 20 GM/30 ML SOLUTION PO (18:38)
[2022-06-05] MEDS: Ibuprofen 600 MG TABLET PO (19:35)
[2022-06-05 20:44] LABS: Glucose, Whole Blood 148 mg/dL (60-115)
[2022-06-05 22:30] VITALS: BP 115/80; PULSE 85; TEMP 36.4; O2SAT 94
[2022-06-05] MEDS: cloNIDine HCL 0.1 MG TABLET PO (22:47)
[2022-06-05] MEDS: QUEtiapine Fumarate 50 MG TABLET PO (22:48)
[2022-06-05] MEDS: Gabapentin 300 MG CAPSULE 600 MG PO (22:48)
[2022-06-05] MEDS: Melatonin 3 MG TABLET 6 MG PO (22:48)
[2022-06-06] MEDS: OXcarbazepine 300 MG TABLET 600 MG PO ×2 (10:07→22:34)
[2022-06-06] MEDS: Topiramate 25 MG TABLET 50 MG PO ×2 (10:08→22:34)
[2022-06-06] MEDS: Sennosides/Docusate Sodium TABLET 2 TAB PO ×2 (10:08→22:34)
[2022-06-06] MEDS: Venlafaxine HCl ER 75 MG CAP.ER.24H 225 MG PO (10:09)
[2022-06-06] MEDS: Gabapentin 400 MG CAPSULE PO ×2 (10:09→14:52)
[2022-06-06] MEDS: Dextroamphetamine/Amphetamine XR 10 MG CAP.ER.24H 30 MG PO (10:09)
[2022-06-06] MEDS: Baclofen 10 MG TABLET PO ×3 (10:10→22:34)
[2022-06-06] MEDS: Rivaroxaban 20 MG TABLET PO (10:10)
[2022-06-06] MEDS: clonazePAM 1 MG TABLET PO ×3 (10:10→22:34)
[2022-06-06] MEDS: Insulin Glargine,Hum.rec.anlog 100 UNIT/ML 10 ML VIAL 30 UNIT SUBCUT ×2 (10:11→22:33)
[2022-06-06] MEDS: Omeprazole 20 MG CAPSULE.DR PO ×2 (10:11→19:11)
[2022-06-06] MEDS: methADONE HCl 20 MG/2 ML ORAL.CONC 125 MG PO (10:13)
[2022-06-06] MEDS: metFORMIN HCl 1,000 MG TABLET 1000 MG PO ×2 (10:21→19:11)
[2022-06-06 10:23] LABS: Glucose, Whole Blood 87 mg/dL (60-115)
[2022-06-06 10:39] VITALS: BP 140/87; PULSE 74; TEMP 36.3; O2SAT 98
[2022-06-06] MEDS: Ondansetron ODT 4 MG TAB.RAPDIS TRANSLINGU (11:25)
[2022-06-06 12:33] LABS: Appearance Urine Clear; Color Urine Yellow; Glucose Urine UA Negative (Negative); Leukocyte Esterase Urine Negative (Negative); Nitrite Urine Negative (Negative); PH 8.5 (5.0-9.0); Specific Gravity - Urine 1.015 (1.005-1.025); Urine Blood Negative (Negative); Urine Ketones Negative (Negative); Urine Protein Negative (Neg-Trace)
[2022-06-06 12:36] LABS: Phencyclidine Screen Urine Not Detected (Not Detect)
[2022-06-06 13:09] LABS: Glucose, Whole Blood 117 mg/dL (60-115)
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
[2022-06-06] MEDS: Lactulose 20 GM/30 ML SOLUTION PO (19:10)
[2022-06-06 22:28] LABS: Glucose, Whole Blood 141 mg/dL (60-115)
[2022-06-06] MEDS: QUEtiapine Fumarate 50 MG TABLET PO (22:34)
[2022-06-06] MEDS: cloNIDine HCL 0.1 MG TABLET PO (22:34)
[2022-06-06] MEDS: Gabapentin 300 MG CAPSULE 600 MG PO (22:34)
[2022-06-06] MEDS: Melatonin 3 MG TABLET 6 MG PO (22:35)
[2022-06-06 22:59] VITALS: BP 118/72; PULSE 64; RESP 16; TEMP 36.9; O2SAT 99
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
[2022-06-07 08:08] VITALS: BP 117/80; PULSE 100; RESP 16; TEMP 36.7; O2SAT 99
[2022-06-07 08:15] LABS: Glucose, Whole Blood 156 mg/dL (60-115)
[2022-06-07] MEDS: Insulin Glargine,Hum.rec.anlog 100 UNIT/ML 10 ML VIAL 30 UNIT SUBCUT (08:19)
[2022-06-07] MEDS: OXcarbazepine 300 MG TABLET 600 MG PO (08:20)
[2022-06-07] MEDS: methADONE HCl 20 MG/2 ML ORAL.CONC 125 MG PO (08:20)
[2022-06-07] MEDS: Dextroamphetamine/Amphetamine XR 10 MG CAP.ER.24H 30 MG PO (08:21)
[2022-06-07] MEDS: metFORMIN HCl 1,000 MG TABLET 1000 MG PO (08:21)
[2022-06-07] MEDS: Rivaroxaban 20 MG TABLET PO (08:22)
[2022-06-07] MEDS: Omeprazole 20 MG CAPSULE.DR PO (08:22)
[2022-06-07] MEDS: clonazePAM 1 MG TABLET PO (08:22)
[2022-06-07] MEDS: Topiramate 25 MG TABLET 50 MG PO (08:23)
[2022-06-07] MEDS: Baclofen 10 MG TABLET PO (08:23)
[2022-06-07] MEDS: Venlafaxine HCl ER 75 MG CAP.ER.24H 225 MG PO (08:23)
[2022-06-07] MEDS: Gabapentin 400 MG CAPSULE PO (08:24)
[2022-06-07] MEDS: Mineral Oil/Petrolatum,White 106 GM Tube 1 APPL TOPICAL (08:25)
--- NOTE | 2022-06-07 15:29 | PC.NURSE ---
Patient has waste of methadone of 15mg for 0900 dose by this RN that was witnessed by Christian Moy RN, clinical coordinator.
== END 2022-06-07 09:35 | disposition home or self-care (01) | DRG 885 ==
PROVIDERS: Internal Medicine; Physician Assistant; Admitting Provider Psychiatry & Neurology Psychiatry; Visit Provider Registered Nurse
DX: F33.2 Major depressive disorder, recurrent severe without psychotic features (principal); F11.20 Opioid dependence, uncomplicated; R45.851 Suicidal ideations; E11.9 Type 2 diabetes mellitus without complications; F43.10 Post-traumatic stress disorder, unspecified; K21.9 Gastro-esophageal reflux disease without esophagitis; I10 Essential (primary) hypertension; R20.2 Paresthesia of skin; F17.210 Nicotine dependence, cigarettes, uncomplicated; B19.20 Unspecified viral hepatitis C without hepatic coma; Z86.711 Personal history of pulmonary embolism; Z59.02 Unsheltered homelessness; Z87.820 Personal history of traumatic brain injury; Z71.6 Tobacco abuse counseling; Z88.8 Allergy status to other drugs, medicaments and biological substances; Z79.4 Long term (current) use of insulin; Z79.01 Long term (current) use of anticoagulants; Z79.84 Long term (current) use of oral hypoglycemic drugs; Z79.899 Other long term (current) drug therapy
CPT/HCPCS: 36415; 74018; 80048; 80053; 80061; 80307; 81003; 82565; 82607; 82746; 82947; 83036; 83735; 84439; 84443; 86704; 86705; 86706; 86803; 87086; 87340; 87522

== ENCOUNTER 2022-12-23 15:28 | Emergency (ER) | payer OTHER, SELFPAY ==
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
[2022-12-23 15:35] VITALS: BP 112/48; PULSE 63; RESP 18; TEMP 36.4; O2SAT 97; BMI 42.6
--- NOTE | 2022-12-23 15:41 | PC.NURSE ---
from [facility] on [address], to be transported back via [facility] once medically cleared.
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
--- NOTE | 2022-12-23 16:19 | PC.NURSE ---
pct in to obtain labs, pt refused. removed own collar
--- NOTE | 2022-12-23 16:22 | PC.NURSE ---
pt lethargic, easily arousable to verbal stimuli
[2022-12-23 16:23] VITALS: BP 113/67; PULSE 64; RESP 16; TEMP 36.9; O2SAT 94
--- NOTE | 2022-12-23 17:50 | PC.NURSE ---
plan for pt to be discharge via ems back to [facility]
== END 2022-12-23 19:00 | disposition other institution (70) ==
PROVIDERS: Emergency Provider Emergency Medicine
DX: S06.0XAA Concussion with loss of consciousness status unknown, initial encounter (principal); S00.81XA Abrasion of other part of head, initial encounter; Y04.2XXA Assault by strike against or bumped into by another person, initial encounter; E11.9 Type 2 diabetes mellitus without complications; I10 Essential (primary) hypertension; B19.20 Unspecified viral hepatitis C without hepatic coma; F17.210 Nicotine dependence, cigarettes, uncomplicated; Z86.711 Personal history of pulmonary embolism; Y93.89 Activity, other specified; Y92.049 Unspecified place in boarding-house as the place of occurrence of the external cause; Y99.9 Unspecified external cause status; Z79.899 Other long term (current) drug therapy
CPT/HCPCS: 70450; 71045; 72125; 99284

== ENCOUNTER 2024-08-29 19:02 | Inpatient (IN) | payer OTHER, SELFPAY ==
--- NOTE | ~2024-08-29 | XR_ITS ---
CLINICAL HISTORY: pain s p punching wall 4 view right wrist Comparison: None Findings: Bones intact. No dislocations. No significant arthritic change or erosions. No radiopaque foreign body. IMPRESSION: 1. No acute findings This document has been electronically signed by: Parth Loco MD on 09/02/2024 18:16:42
--- NOTE | ~2024-08-29 | US_ITS ---
EXAMINATION: US TRIPLEX LOWER EXTREMITY, LEFT CLINICAL INFORMATION: Left leg pain and swelling. COMPARISON: None available. TECHNIQUE: Color-flow triplex imaging with spectral analysis and compression Doppler were performed on the left lower extremity. FINDINGS: Respiratory variation, normal compression and augmented flow are noted throughout the left lower extremity. The visualized common femoral vein, superficial femoral vein, profunda femoral vein, popliteal vein and midcalf peroneal and posterior tibial venous segments show no evidence of deep venous thrombosis. There is no Storey's cyst. US/US venous duplex LE LT IMPRESSION: No evidence of deep venous thrombosis involving the left lower extremity. Electronically signed by: Tima Phan MD 08/30/2024 04:48 PM EST
--- OUTSIDE RECORDS SUMMARY | 2024-08-29 20:07 | XMS_ITS | Clinical Summary ---
Author Organization [facility] it Address [address] [place] [address] Care Team Providers Care Tire Buffer Name Role Phone Sesar Morales MD Primary Care Provider [phone] Social History Tobacco Use Types Packs/Day Years Used Date Smoking Tobacco: Never Assessed Comments Unknown Sex and Gender Information Value Date Recorded Sex Assigned at Not on file Legal Sex Female 1:34 AM EST Gender Identity Not on file Sexual Orientation Not on file Plan of Treatment Health Maintenance Due Date Last Done Comments Breast Cancer Screening 1981 DTaP,Tdap,and Td Vaccines (1 - Tdap) 2000 Hepatitis B Vaccines (1 of 3 - 19+ 3-dose series) 2000 Cervical Cancer Screening: P ap Smear 2002 Depression Screening 06/06/2022 HIV Screening 06/06/2022 Hepatitis C Screening 06/06/2022 Social Influencers of Health Screening 06/06/2022 COVID-19 Vaccine ( - 2023-2 5 season) 2024 Influenza Vaccine (#1) 2024 HIB Vaccines Aged Out No longer eligi ble based on patient's age to complete this topic HPV Vaccines Aged Out No longer eligi ble based on patient's age to complete this topic Hepatitis A Vaccines Aged Out No long er eligible based on patient's age to complete this topic IPV Vaccines Aged Out No longer eligi ble based on patient's age to complete this topic MMR Vaccines Aged Out No longer eligi ble based on patient's age to complete this topic Meningococcal ACWY Vaccine Aged Out N o longer eligible based on patient's age to complete this topic Meningococcal B Vacine Aged Out No lo nger eligible based on patient's age to complete this topic Pneumococcal Vaccine: Pediat rics (0 to 5 Years) and At-Risk Patients (6 to 64 Years) Aged Out No longer eligible b ased on patient's age to complete this topic RSV Immunization Patients Un ignacio 20 months Aged Out No longer eligible b ased on patient's age to complete this topic Varicella Vaccines Aged Out No longer eligible based on patient's age to complete this topic Care Teams Tire Buffer Relationship Specialty Start Date End Date Sesar Morales MD [facility] [address] [place] [address] PCP - General Internal Medicine 09/08/21
--- OUTSIDE RECORDS SUMMARY | 2024-08-29 20:07 | XMS_ITS | Clinical Summary ---
Author Organization [facility] Address [address] [place] [address] Phone Care Team Providers Care Neurology Professor Name Role Phone Required, No Pcp/Pcp Not Primary Care Provider U navailable Allergies Active Allergy Reactions Criticality Noted Date Comments Chlorpromazine 04/24/2024 Codeine 04/24/2024 Haloperidol 04/24/2024 Naltrexone 04/24/2024 Olanzapine 04/24/2024 Shellfish Allergy 04/24/2024 Social History Tobacco Use Types Packs/Day Years Used Date Smoking Tobacco: Never Assessed Comments Unknown Sex and Gender Information Value Date Recorded Sex Assigned at Not on file Legal Sex Female 10:40 PM EDT Gender Identity Not on file Sexual Orientation Not on file Last Filed Vital Signs Vital Sign Reading Time Taken Comments Blood Pressure 144/71 04/25/2024 6:13 AM EDT Pulse 63 04/25/2024 6:13 AM EDT Temperature 36.6 ??C (97.9 ??F) 04/25/2024 6:13 AM ED T Respiratory Rate 16 04/25/2024 6:13 AM EDT Oxygen Saturation 98% 04/25/2024 6:13 AM EDT Inhaled Oxygen Concentration - - Weight 104.3 kg (230 lb) 04/24/2024 10:53 PM EDT Height 157.5 cm (5' 2 ) 04/24/2024 10:53 PM EDT Body Mass Index 42.07 04/24/2024 10:53 PM EDT Plan of Treatment Health Maintenance Due Date Last Done Comments [facility] Topic HIV Screening 1981 [facility] Topic Hepatitis C Screening 1981 [facility] Topic Depression Screening 1993 [facility] Topic Tdap Vaccine (1 - Tdap) 2000 [facility] Topic Lipid Profile 5 years 2003 [facility] Topic Cervical Cancer Screening 2011 [facility] TOPIC MAMMOGRAM 2021 [facility] Topic Influenza (Flu) Seasonal (#1) 2024 [facility] Topic HIB Vaccines Aged Out No longer eligible based on patient's age to complete this topic [facility] Topic HPV Vaccines Aged Out No longer eligible based on patient's age to complete this topic Insurance [facility] [employer] [place] [id number] Care Teams Neurology Professor Relationship Specialty Start Date End Date Required, No Pcp/Pcp Not [address] [place] [address] PCP - General Rim Roller Operator 04/24/24
[2024-08-29 20:32] LABS: Glucose, Whole Blood 183 mg/dL (60-115)
[2024-08-29 21:00] VITALS: BP 153/91; PULSE 55; TEMP 36.4; O2SAT 100
[2024-08-29] MEDS: metFORMIN HCl 1,000 MG TABLET 1000 MG PO (21:34)
[2024-08-29] MEDS: Omeprazole 20 MG CAPSULE.DR PO (21:34)
[2024-08-29] MEDS: clonazePAM 1 MG TABLET PO (21:34)
[2024-08-29] MEDS: Gabapentin 600 MG TABLET 800 MG PO (21:35)
[2024-08-29] MEDS: QUEtiapine Fumarate 100 MG TABLET PO (21:36)
[2024-08-29] MEDS: cloNIDine HCL 0.1 MG TABLET PO (21:36)
[2024-08-29] MEDS: Topiramate 25 MG TABLET 100 MG PO (21:37)
[2024-08-29 23:24] VITALS: BMI 39.9
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
[2024-08-30] MEDS: methADONE HCl 20 MG/2 ML ORAL.CONC 60 MG PO (07:44)
[2024-08-30 07:54] LABS: Glucose, Whole Blood 156 mg/dL (60-115)
[2024-08-30] MEDS: clonazePAM 1 MG TABLET PO ×2 (08:17→21:25)
[2024-08-30] MEDS: Omeprazole 20 MG CAPSULE.DR PO (08:18)
[2024-08-30] MEDS: Topiramate 25 MG TABLET 100 MG PO (08:18)
[2024-08-30] MEDS: metFORMIN HCl 1,000 MG TABLET 1000 MG PO (08:18)
[2024-08-30] MEDS: Ipratropium Bromide Nas 0.03 % 30 ML SPRAY 2 SPRAY NOSTRIL-B ×2 (08:38→14:14)
[2024-08-30 09:00] VITALS: BP 141/62; PULSE 58; RESP 18; TEMP 36.4; O2SAT 97
[2024-08-30] MEDS: cloNIDine HCL 0.1 MG TABLET PO ×3 (09:27→21:26)
[2024-08-30] MEDS: Gabapentin 400 MG CAPSULE 800 MG PO ×3 (09:27→21:26)
[2024-08-30] MEDS: Promethazine HCL 25 MG TABLET PO ×2 (09:28→15:15)
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
[2024-08-30 12:22] LABS: Glucose, Whole Blood 244 mg/dL (60-115)
[2024-08-30] MEDS: Insulin Lispro 100 UNIT/ML 3 ML VIAL SUBCUT ×2 (12:34→17:30)
[2024-08-30] MEDS: Nicotine Polacrilex 2 MG GUM 4 MG BUCCAL ×3 (12:47→21:26)
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
[2024-08-30 15:14] VITALS: BP 123/66
[2024-08-30 17:30] LABS: Glucose, Whole Blood 201 mg/dL (60-115)
[2024-08-30] MEDS: Lactulose 20 GM/30 ML SOLUTION 30 GM PO (17:31)
[2024-08-30] MEDS: Rivaroxaban 20 MG TABLET PO (17:31)
[2024-08-30] MEDS: Docusate Sodium 100 MG CAPSULE PO (17:31)
[2024-08-30] MEDS: Acetaminophen 325 MG TABLET 650 MG PO (18:06)
[2024-08-30 19:45] VITALS: BP 102/59; PULSE 69; RESP 18; TEMP 36.4; O2SAT 94
[2024-08-30 20:36] LABS: Glucose, Whole Blood 167 mg/dL (60-115)
[2024-08-30] MEDS: QUEtiapine Fumarate 100 MG TABLET PO (21:25)
[2024-08-30] MEDS: Insulin Glargine,Hum.rec.anlog 100 UNIT/ML 10 ML VIAL 65 UNIT SUBCUT (21:28)
[2024-08-31] MEDS: Omeprazole 20 MG CAPSULE.DR PO (06:35)
[2024-08-31] MEDS: methADONE HCl 20 MG/2 ML ORAL.CONC 60 MG PO (08:11)
[2024-08-31] MEDS: Amphetamine Mixed Salts 10 MG TABLET PO ×2 (08:12→12:44)
[2024-08-31] MEDS: clonazePAM 1 MG TABLET PO ×2 (08:12→20:17)
[2024-08-31] MEDS: Promethazine HCL 25 MG TABLET PO (08:15)
[2024-08-31 08:27] LABS: Glucose, Whole Blood 193 mg/dL (60-115)
[2024-08-31 08:41] VITALS: BP 92/50; PULSE 55; TEMP 36.3; O2SAT 96
[2024-08-31] MEDS: Lactulose 20 GM/30 ML SOLUTION 30 GM PO ×2 (08:45→20:17)
[2024-08-31] MEDS: Gabapentin 400 MG CAPSULE 800 MG PO ×3 (08:45→20:17)
[2024-08-31] MEDS: metFORMIN HCl 1,000 MG TABLET 1000 MG PO (08:46)
[2024-08-31] MEDS: Docusate Sodium 100 MG CAPSULE PO ×2 (08:46→20:16)
[2024-08-31] MEDS: Topiramate 25 MG TABLET 100 MG PO (08:46)
[2024-08-31] MEDS: Insulin Lispro 100 UNIT/ML 3 ML VIAL SUBCUT ×3 (08:49→20:55)
[2024-08-31] MEDS: Ipratropium Bromide Nas 0.03 % 30 ML SPRAY 2 SPRAY NOSTRIL-B ×2 (09:05→15:00)
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
[2024-08-31] MEDS: Amphetamine Mixed Salts 10 MG TABLET 20 MG PO (15:47)
[2024-08-31 17:13] LABS: Glucose, Whole Blood 223 mg/dL (60-115)
[2024-08-31] MEDS: Rivaroxaban 20 MG TABLET PO (17:23)
[2024-08-31 20:00] VITALS: BP 140/71; PULSE 90; TEMP 36.4; O2SAT 100
[2024-08-31 20:17] VITALS: BP 140/71
[2024-08-31] MEDS: Prazosin HCL 1 MG CAPSULE 3 MG PO (20:17)
[2024-08-31] MEDS: QUEtiapine Fumarate 100 MG TABLET PO (20:17)
[2024-08-31 20:39] LABS: Glucose, Whole Blood 286 mg/dL (60-115)
[2024-08-31] MEDS: Acetaminophen 325 MG TABLET 650 MG PO (20:53)
[2024-08-31] MEDS: Insulin Glargine,Hum.rec.anlog 100 UNIT/ML 10 ML VIAL 65 UNIT SUBCUT (20:54)
[2024-09-01 04:42] VITALS: BP 106/65
[2024-09-01] MEDS: cloNIDine HCL 0.1 MG TABLET PO ×2 (04:42→23:23)
[2024-09-01] MEDS: hydrOXYzine HCL 25 MG TABLET PO (04:42)
[2024-09-01] MEDS: Nicotine Polacrilex 2 MG GUM 4 MG BUCCAL (04:45)
[2024-09-01] MEDS: Omeprazole 20 MG CAPSULE.DR PO (07:13)
[2024-09-01] MEDS: methADONE HCl 20 MG/2 ML ORAL.CONC 60 MG PO (07:56)
[2024-09-01 08:23] LABS: Glucose, Whole Blood 272 mg/dL (60-115)
[2024-09-01] MEDS: Lactulose 20 GM/30 ML SOLUTION 30 GM PO (08:53)
[2024-09-01] MEDS: clonazePAM 1 MG TABLET PO ×2 (08:53→21:14)
[2024-09-01] MEDS: metFORMIN HCl 1,000 MG TABLET 1000 MG PO (08:53)
[2024-09-01] MEDS: Gabapentin 400 MG CAPSULE 800 MG PO ×3 (08:54→21:14)
[2024-09-01] MEDS: Docusate Sodium 100 MG CAPSULE PO ×2 (08:54→21:14)
[2024-09-01] MEDS: Topiramate 25 MG TABLET 100 MG PO (08:54)
[2024-09-01] MEDS: Amphetamine Mixed Salts 10 MG TABLET 20 MG PO ×2 (08:54→14:05)
[2024-09-01] MEDS: Ipratropium Bromide Nas 0.03 % 30 ML SPRAY 2 SPRAY NOSTRIL-B ×3 (08:55→21:12)
[2024-09-01] MEDS: Insulin Lispro 100 UNIT/ML 3 ML VIAL SUBCUT ×4 (08:59→21:13)
[2024-09-01 09:00] VITALS: BP 101/63; PULSE 108; RESP 16; TEMP 36.4; O2SAT 96
[2024-09-01] MEDS: Promethazine HCL 25 MG TABLET PO (09:42)
--- NOTE | 2024-09-01 10:25 | HO.PSYCHPN ---
Subjective Subjective Date of Service: 09/01/24 Reason For Visit: Psych Subjective Notes: Conditional Voluntary Interim History: The nursing staff reported that she has presented splitting behavior asking to 1 staff and when she does not get what she wants is asking another 1. There is the suspicious and she was asking for contraband to patient who was discharged yesterday. On interview the patient denies new symptoms besides insomnia and requested an increase of her Seroquel. Mental Status Exam Mental Status Exam Patient Appearance: Appropriate Patient Orientation: Person and Situation Level of Consciousness: Awake and Appropriate Patient Behavior: Guarded and Passive Mood Description: Withdrawn Affect Description: Constricted Ability to Follow Directions: Good Speech Pattern: Clear Hallucinations: None Delusions: Not Present Thought Process: Linear Thought Content: positive for Circumstantial Judgement: Fair Diagnostics Vital Signs (24Hr): Vital Signs - 24 hr 08/31/24 20:00 08/31/24 20:17 09/01/24 04:42 Temperature 97.5 F Pulse Rate 90 Respiratory Rate Blood Pressure 140/71 H 140/71 H 106/65 Pulse Oximetry 100 Oxygen Delivery Method Room Air 09/01/24 09:00 Temperature 97.5 F Pulse Rate 108 H Respiratory Rate 16 Blood Pressure 101/63 Pulse Oximetry 96 Oxygen Delivery Method Room Air BMI result Body Mass Index 39.9 Labs Labs: Laboratory Results - last 48 hr 08/30/24 08/30/24 08/30/24 12:18 17:23 20:26 POC Glucose 244 H 201 H 167 H 08/31/24 08/31/24 08/31/24 08:19 17:10 20:26 POC Glucose 193 H 223 H 286 H 09/01/24 08:18 POC Glucose 272 H Imaging Radiology Impressions: ITS Impressions Venous Duplex 08/30/24 16:21 IMPRESSION: No evidence of deep venous thrombosis involving the left lower extremity. Electronically signed by: Tima Phan MD 08/30/2024 04:48 PM [facility] [place] Medications Medications Current Medications Acetaminophen (Acetaminophen 325 Mg Tablet) 650 mg PO Q6H PRN PRN Reason: Headache/Pain, Scale 1-10 Last Admin: 08/31/24 20:53 Dose: 650 mg Al Hydroxide/Mg Hydroxide (Magnesium Hydrox/Alum Hydrox 30 Ml Oral.Susp) 30 ml PO Q6H PRN PRN Reason: Heartburn/Nausea Amphetamine/Dextroamphetamine (Amphetamine Mixed Salts 10 Mg Tablet) 20 mg PO BID@0800,1500 [facility] Last Admin: 09/01/24 08:54 Dose: 20 mg Benztropine Mesylate (Benztropine Mesylate 1 Mg Tablet) 1 mg PO BID PRN PRN Reason: eps,dystonia sx Clonazepam (Clonazepam 1 Mg Tablet) 1 mg PO BID [facility] Last Admin: 09/01/24 08:53 Dose: 1 mg Clonidine HCl (Clonidine Hcl 0.1 Mg Tablet) 0.1 mg PO Q4H PRN; Protocol PRN Reason: Anxiety Last Admin: 09/01/24 04:42 Dose: 0.1 mg Dextrose (Dextrose 50 % 25 Gm/50 Ml Syringe) 25 gm IVPUSH Q15M PRN; Protocol PRN Reason: per Hypoglycemia Standing Ord. Docusate Sodium (Docusate Sodium 100 Mg Capsule) 100 mg PO BID [facility] Last Admin: 09/01/24 08:54 Dose: 100 mg Gabapentin (Gabapentin 400 Mg Capsule) 800 mg PO TID [facility] Last Admin: 09/01/24 08:54 Dose: 800 mg Glucose (Glucose Gel 15 Gm Gel..Gram.) 15 gm PO Q15M PRN; Protocol PRN Reason: per Hypoglycemia Standing Ord. Hydroxyzine HCl (Hydroxyzine Hcl 25 Mg Tablet) 25 mg PO Q6H PRN PRN Reason: mild anxiety Last Admin: 09/01/24 04:42 Dose: 25 mg Insulin Glargine (Insulin Glargine,Hum.Rec.Anlog 100 Unit/Ml 10 Ml Vial) 65 unit SUBCUT BEDTIME [facility] Last Admin: 08/31/24 20:54 Dose: 65 unit Insulin Human Lispro (Insulin Lispro 100 Unit/Ml 3 Ml Vial) 0 unit SUBCUT QIDACHS [facility]; Protocol Last Admin: 09/01/24 08:59 Dose: 6 unit Ipratropium [place] (Ipratropium [place] Paul 0.03 % 30 Ml [place]) 2 spray NOSTRIL-B TID [facility] Last Admin: 09/01/24 08:55 Dose: 2 spray Lactulose (Lactulose 20 Gm/30 Ml Solution) 20 gm PO DAILY PRN PRN Reason: continued constipation Magnesium Hydroxide (Milk Of Magnesia 30 Ml Oral.Susp) 30 ml PO DAILY PRN PRN Reason: Constipation Metformin HCl (Metformin Hcl 1,000 Mg Tablet) 1,000 mg PO DAILY [facility] Last Admin: 09/01/24 08:53 Dose: 1,000 mg Methadone HCl (Methadone Hcl 20 Mg/2 Ml Oral.Conc) 60 mg PO DAILY [facility] Last Admin: 09/01/24 07:56 Dose: 60 mg Nicotine (Nicotine 21 Mg Patch.Td24) 21 mg TRANSDERMA DAILY PRN PRN Reason: smoking cessation Nicotine Polacrilex (Nicotine Polacrilex 2 Mg Gum) 4 mg BUCCAL Q2H PRN PRN Reason: Nicotine Cravings Last Admin: 09/01/24 04:45 Dose: 4 mg Omeprazole (Omeprazole 20 Mg Capsule.Dr) 20 mg PO DAILY@0630 [facility] Last Admin: 09/01/24 07:13 Dose: 20 mg Polyethylene Glycol (Polyethylene Glycol 3350 17 Gm Powd.Pack) 17 gm PO DAILY [facility] Last Admin: 09/01/24 08:54 Dose: Not Given Prazosin HCl (Prazosin Hcl 1 Mg Capsule) 3 mg PO BEDTIME [facility]; Protocol Last Admin: 08/31/24 20:17 Dose: 3 mg Promethazine HCl (Promethazine Hcl 25 Mg Tablet) 25 mg PO Q4H PRN PRN Reason: Nausea and Vomiting Last Admin: 09/01/24 09:42 Dose: 25 mg Quetiapine Fumarate (Quetiapine Fumarate 100 Mg Tablet) 100 mg PO BEDTIME [facility] Last Admin: 08/31/24 20:17 Dose: 100 mg Risperidone (Risperidone 1 Mg Tablet) 1 mg PO BID PRN PRN Reason: grounding assistance Rivaroxaban (Rivaroxaban 20 Mg Tablet) 20 mg PO DAILY@1700 [facility] Last Admin: 08/31/24 17:23 Dose: 20 mg Topiramate (Topiramate 25 Mg Tablet) 100 mg PO DAILY [facility] Last Admin: 09/01/24 08:54 Dose: 100 mg Trazodone HCl (Trazodone Hcl 50 Mg Tablet) 50 mg PO BEDTIME MRX1 PRN PRN Reason: Insomnia Allergies Allergies Allergy/AdvReac Type Severity Reaction Status Date / Time olanzapine [From Zyprexa] Allergy Unknown dystonia Verified 05/18/22 20:11 haloperidol [From Haldol] Allergy dystonia Verified 05/18/22 20:10 naltrexone AdvReac Intermediate Nausea and Verified 05/19/22 04:35 Vomiting thorazine Allergy Severe Angioedema Uncoded 05/19/22 04:35 Assessment & Plan Assessment & Plan (1) PTSD (post-traumatic stress disorder): Status: Acute Code(s): F43.10 - Post-traumatic stress disorder, unspecified (2) Polysubstance use disorder: Status: Acute Code(s): F19.90 - Other psychoactive substance use, unspecified, uncomplicated Plan Pt is a 44-year-old female with a PMH significant for hx of DVT/PE on Xarelto, insulin-dependent type 2 diabetes, HTN, pseudoseizures, hepatitis-C untreated, polysubstance use disorder on methadone, PTSD, MDD, bipolar disorder type 1, and borderline personality disorder who is admitted to [facility] psychiatry unit for increasing depression with SI with plan to hang herself. Medical consult for admission H&P. Mood disorder Plan as per psychiatry Left lower extremity swelling and pain On Xarelto but stopped taking for a short period of time 2-3 weeks ago Will check venous duplex US to r/o DVT Constipation Reports no BM x3-4 weeks Lactulose 30mg bid x2 days, Miralax daily, Colace bid Hx of DVT/PE Continue Xarelto Hx of hepatitis C Needs outpatient treatment Insulin-dependent type 2 diabetes Poorly controlled Sliding-scale insulin, Lantus Continue metformin Diabetic diet Peripheral neuropathy Continue gabapentin GERD Continue PPI Migraines Topiramate Polysubstance use disorder Continue methadone Plan as per Psychiatry/Addiction medicine Thank you for allowing us to participate in the care of this patient. Signing off at this time. Please re-consult if any acute complaints or issues arise. 08/31 Increase Adderall to 20 mg bid on 09/01. Risperdal 1 mg bid prn grounding Benztropine 1 mg bid prn for SE of Risperdal 09/01 Increase Seroquel up to 150 mg po qhs Reason for continued inpatient stay Substantial Risk for: inability to function, rapid decompensation and med/psych decompensation Time Spent With Patient Time: Total time managing care of this patient today __20__ minutes.
[2024-09-01 12:09] LABS: Glucose, Whole Blood 302 mg/dL (60-115)
[2024-09-01] MEDS: Acetaminophen 325 MG TABLET 650 MG PO ×2 (13:44→21:13)
[2024-09-01 17:18] LABS: Glucose, Whole Blood 172 mg/dL (60-115)
[2024-09-01] MEDS: Rivaroxaban 20 MG TABLET PO (17:41)
[2024-09-01 20:00] VITALS: BP 142/87; PULSE 107; TEMP 36.4; O2SAT 97
[2024-09-01 20:31] LABS: Glucose, Whole Blood 240 mg/dL (60-115)
[2024-09-01] MEDS: Insulin Glargine,Hum.rec.anlog 100 UNIT/ML 10 ML VIAL 65 UNIT SUBCUT (21:12)
[2024-09-01 21:14] VITALS: BP 142/87
[2024-09-01] MEDS: QUEtiapine Fumarate 50 MG TABLET 150 MG PO (21:14)
[2024-09-01] MEDS: Prazosin HCL 1 MG CAPSULE 3 MG PO (21:14)
[2024-09-01] MEDS: risperiDONE 1 MG TABLET PO (23:17)
[2024-09-01] MEDS: Benztropine Mesylate 1 MG TABLET PO (23:20)
[2024-09-01 23:23] VITALS: BP 120/75
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
--- NOTE | 2024-09-02 00:29 | PC.NURSE ---
@ 0000 Pt approaches RN station requesting 24 hour number for [employer]. Pt using phones to call for self stating It says my card was delivered to [place] when I gave them the address for this hospital. Pt perseverating over card, complaining to staff that I'm gonna hurt someone if I can't figure out what is going on Pt attempts additional calls but when hangs up phone immediately begins to say Ow. Oh my god, my wrist hurts so bad, It's gotta be broken, I put the phone down and had immediate shooting pain to my fingers Pt making sobbing noises and begging RN to call [employer] to fix issue. I'm begging you, I need to understand what is happening with this card. I don't have any money Pt sitting at phone during this time, talkative, variable affect throughout conversation, threatening to kill self if RN does not give her pain medicine then again returning to perseveration over checking tracking number online and not accepting answers from staff about lack of knowledge regarding [employer] systems. Pt ongoing with this for over 30 minutes at this time, will continue to redirect.
[2024-09-02] MEDS: Omeprazole 20 MG CAPSULE.DR PO (07:08)
[2024-09-02] MEDS: methADONE HCl 20 MG/2 ML ORAL.CONC 60 MG PO (07:45)
[2024-09-02 08:34] LABS: Glucose, Whole Blood 229 mg/dL (60-115)
[2024-09-02] MEDS: Docusate Sodium 100 MG CAPSULE PO ×2 (08:51→20:47)
[2024-09-02] MEDS: clonazePAM 1 MG TABLET PO ×2 (08:51→20:47)
[2024-09-02] MEDS: Ipratropium Bromide Nas 0.03 % 30 ML SPRAY 2 SPRAY NOSTRIL-B ×2 (08:51→14:04)
[2024-09-02] MEDS: metFORMIN HCl 1,000 MG TABLET 1000 MG PO (08:52)
[2024-09-02] MEDS: Gabapentin 400 MG CAPSULE 800 MG PO ×3 (08:52→20:46)
[2024-09-02] MEDS: Amphetamine Mixed Salts 10 MG TABLET 20 MG PO ×2 (08:52→14:05)
[2024-09-02] MEDS: Topiramate 25 MG TABLET 100 MG PO (08:52)
[2024-09-02] MEDS: Insulin Lispro 100 UNIT/ML 3 ML VIAL SUBCUT ×4 (08:55→20:54)
[2024-09-02 09:00] VITALS: BP 135/87; PULSE 98; RESP 18; TEMP 36.6; O2SAT 97
[2024-09-02] MEDS: Promethazine HCL 25 MG TABLET PO (09:02)
--- NOTE | 2024-09-02 11:24 | P.PNPSI_ITS ---
Subjective Subjective Date of Service: 09/02/24 Reason For Visit: Psych Subjective Notes: Conditional Voluntary Interim History: The nursing staff reported that she had been showing borderline personality traits such as splitting with staff, she complained of wrist pain after she punched a wall I called the hospitalist consult. On interview the patient reported that she was complaining about staff and that she gave away her clothes into other patients because she felt that she has to do it. Unable to understand boundaries. Mostly borderline personality traits. Mental Status Exam Mental Status Exam Patient Appearance: Appropriate Patient Orientation: Person and Situation Level of Consciousness: Awake and Appropriate Patient Behavior: Belligerent Mood Description: Withdrawn Affect Description: Labile Patient Cognition Impaired: Yes Ability to Follow Directions: Good Speech Pattern: Clear Hallucinations: None Delusions: Not Present Thought Process: Distracted and Slowed Thinking Thought Content: positive for [place] and positive for Poverty of Content Judgement: Poor Diagnostics Vital Signs (24Hr): Vital Signs - 24 hr 09/01/24 20:00 09/01/24 21:14 09/01/24 23:23 Temperature 97.5 F Pulse Rate 107 H Respiratory Rate Blood Pressure 142/87 H 142/87 H 120/75 Pulse Oximetry 97 Oxygen Delivery Method Room Air 09/02/24 09:00 Temperature 97.8 F Pulse Rate 98 Respiratory Rate 18 Blood Pressure 135/87 Pulse Oximetry 97 Oxygen Delivery Method Room Air BMI result Body Mass Index 39.9 Labs Labs: Laboratory Results - last 48 hr 08/31/24 08/31/24 09/01/24 17:10 20:26 08:18 POC Glucose 223 H 286 H 272 H 09/01/24 09/01/24 09/01/24 12:04 17:09 20:27 POC Glucose 302 H 172 H 240 H 09/02/24 08:26 POC Glucose 229 H Imaging Radiology Impressions: ITS Impressions Venous Duplex 08/30/24 16:21 IMPRESSION: No evidence of deep venous thrombosis involving the left lower extremity. Electronically signed by: Tima Phan MD 08/30/2024 04:[address] [facility] Medications Medications Current Medications Acetaminophen (Acetaminophen 325 Mg Tablet) 650 mg PO Q6H PRN PRN Reason: Headache/Pain, Scale 1-10 Last Admin: 09/01/24 21:13 Dose: 650 mg Al Hydroxide/Mg Hydroxide (Magnesium Hydrox/Alum Hydrox 30 Ml Oral.Susp) 30 ml PO Q6H PRN PRN Reason: Heartburn/Nausea Amphetamine/Dextroamphetamine (Amphetamine Mixed Salts 10 Mg Tablet) 20 mg PO BID@0800,1500 [facility] Last Admin: 09/02/24 08:52 Dose: 20 mg Benztropine Mesylate (Benztropine Mesylate 1 Mg Tablet) 1 mg PO BID PRN PRN Reason: eps,dystonia sx Last Admin: 09/01/24 23:20 Dose: 1 mg Clonazepam (Clonazepam 1 Mg Tablet) 1 mg PO BID [facility] Last Admin: 09/02/24 08:51 Dose: 1 mg Clonidine HCl (Clonidine Hcl 0.1 Mg Tablet) 0.1 mg PO Q4H PRN; Protocol PRN Reason: Anxiety Last Admin: 09/01/24 23:23 Dose: 0.1 mg Dextrose (Dextrose 50 % 25 Gm/50 Ml Syringe) 25 gm IVPUSH Q15M PRN; Protocol PRN Reason: per Hypoglycemia Standing Ord. Docusate Sodium (Docusate Sodium 100 Mg Capsule) 100 mg PO BID [facility] Last Admin: 09/02/24 08:51 Dose: 100 mg Gabapentin (Gabapentin 400 Mg Capsule) 800 mg PO TID [facility] Last Admin: 09/02/24 08:52 Dose: 800 mg Glucose (Glucose Gel 15 Gm Gel..Gram.) 15 gm PO Q15M PRN; Protocol PRN Reason: per Hypoglycemia Standing Ord. Hydroxyzine HCl (Hydroxyzine Hcl 25 Mg Tablet) 25 mg PO Q6H PRN PRN Reason: mild anxiety Last Admin: 09/01/24 04:42 Dose: 25 mg Insulin Glargine (Insulin Glargine,Hum.Rec.Anlog 100 Unit/Ml 10 Ml Vial) 65 unit SUBCUT BEDTIME [facility] Last Admin: 09/01/24 21:12 Dose: 65 unit Insulin Human Lispro (Insulin Lispro 100 Unit/Ml 3 Ml Vial) 0 unit SUBCUT QIDACHS [facility]; Protocol Last Admin: 09/02/24 08:55 Dose: 4 unit Ipratropium [place] (Ipratropium [place] Paul 0.03 % 30 Ml [place]) 2 spray NOSTRIL-B TID [facility] Last Admin: 09/02/24 08:51 Dose: 2 spray Lactulose (Lactulose 20 Gm/30 Ml Solution) 20 gm PO DAILY PRN PRN Reason: continued constipation Magnesium Hydroxide (Milk Of Magnesia 30 Ml Oral.Susp) 30 ml PO DAILY PRN PRN Reason: Constipation Metformin HCl (Metformin Hcl 1,000 Mg Tablet) 1,000 mg PO DAILY [facility] Last Admin: 09/02/24 08:52 Dose: 1,000 mg Methadone HCl (Methadone Hcl 20 Mg/2 Ml Oral.Conc) 60 mg PO DAILY [facility] Last Admin: 09/02/24 07:45 Dose: 60 mg Nicotine (Nicotine 21 Mg Patch.Td24) 21 mg TRANSDERMA DAILY PRN PRN Reason: smoking cessation Nicotine Polacrilex (Nicotine Polacrilex 2 Mg Gum) 2 mg BUCCAL Q1H PRN PRN Reason: Nicotine Cravings Omeprazole (Omeprazole 20 Mg Capsule.Dr) 20 mg PO DAILY@0630 [facility] Last Admin: 09/02/24 07:08 Dose: 20 mg Polyethylene Glycol (Polyethylene Glycol 3350 17 Gm Powd.Pack) 17 gm PO DAILY [facility] Last Admin: 09/02/24 08:52 Dose: Not Given Prazosin HCl (Prazosin Hcl 1 Mg Capsule) 3 mg PO BEDTIME [facility]; Protocol Last Admin: 09/01/24 21:14 Dose: 3 mg Promethazine HCl (Promethazine Hcl 25 Mg Tablet) 25 mg PO Q4H PRN PRN Reason: Nausea and Vomiting Last Admin: 09/02/24 09:02 Dose: 25 mg Quetiapine Fumarate (Quetiapine Fumarate 50 Mg Tablet) 150 mg PO BEDTIME [facility] Last Admin: 09/01/24 21:14 Dose: 150 mg Risperidone (Risperidone 1 Mg Tablet) 1 mg PO BID PRN PRN Reason: grounding assistance Last Admin: 09/01/24 23:17 Dose: 1 mg Rivaroxaban (Rivaroxaban 20 Mg Tablet) 20 mg PO DAILY@1700 [facility] Last Admin: 09/01/24 17:41 Dose: 20 mg Topiramate (Topiramate 25 Mg Tablet) 100 mg PO DAILY [facility] Last Admin: 09/02/24 08:52 Dose: 100 mg Trazodone HCl (Trazodone Hcl 50 Mg Tablet) 50 mg PO BEDTIME MRX1 PRN PRN Reason: Insomnia Allergies Allergies Allergy/AdvReac Type Severity Reaction Status Date / Time olanzapine [From Zyprexa] Allergy Unknown dystonia Verified 05/18/22 20:11 haloperidol [From Haldol] Allergy dystonia Verified 05/18/22 20:10 naltrexone AdvReac Intermediate Nausea and Verified 05/19/22 04:35 Vomiting thorazine Allergy Severe Angioedema Uncoded 05/19/22 04:35 Assessment & Plan Assessment & Plan (1) PTSD (post-traumatic stress disorder): Status: Acute Code(s): F43.10 - Post-traumatic stress disorder, unspecified (2) Polysubstance use disorder: Status: Acute Code(s): F19.90 - Other psychoactive substance use, unspecified, uncomplicated Plan Pt is a 44-year-old female with a PMH significant for hx of DVT/PE on Xarelto, insulin-dependent type 2 diabetes, HTN, pseudoseizures, hepatitis-C untreated, polysubstance use disorder on methadone, PTSD, MDD, bipolar disorder type 1, and borderline personality disorder who is admitted to [facility] psychiatry unit for increasing depression with SI with plan to hang herself. Medical consult for admission H&P. Mood disorder Plan as per psychiatry Left lower extremity swelling and pain On Xarelto but stopped taking for a short period of time 2-3 weeks ago Will check venous duplex US to r/o DVT Constipation Reports no BM x3-4 weeks Lactulose 30mg bid x2 days, Miralax daily, Colace bid Hx of DVT/PE Continue Xarelto Hx of hepatitis C Needs outpatient treatment Insulin-dependent type 2 diabetes Poorly controlled Sliding-scale insulin, Lantus Continue metformin Diabetic diet Peripheral neuropathy Continue gabapentin GERD Continue PPI Migraines Topiramate Polysubstance use disorder Continue methadone Plan as per Psychiatry/Addiction medicine Thank you for allowing us to participate in the care of this patient. Signing off at this time. Please re-consult if any acute complaints or issues arise. 08/31 Increase Adderall to 20 mg bid on 09/01. Risperdal 1 mg bid prn grounding Benztropine 1 mg bid prn for SE of Risperdal 09/01 Increase Seroquel up to 150 mg po qhs 09/02 hospitalist consult keep rest the same. Reason for continued inpatient stay Substantial Risk for: inability to function, rapid decompensation and med/psych decompensation Time Spent With Patient Time: Total time managing care of this patient today __20__ minutes.
[2024-09-02] MEDS: Nicotine Polacrilex 2 MG GUM BUCCAL (11:46)
[2024-09-02 12:25] LABS: Glucose, Whole Blood 214 mg/dL (60-115)
[2024-09-02] MEDS: Nicotine Polacrilex 2 MG GUM 4 MG BUCCAL (13:08)
[2024-09-02 17:01] LABS: Glucose, Whole Blood 303 mg/dL (60-115)
[2024-09-02] MEDS: Rivaroxaban 20 MG TABLET PO (17:39)
[2024-09-02] MEDS: risperiDONE 1 MG TABLET PO ×2 (17:45→20:57)
[2024-09-02 19:41] VITALS: BP 165/82; PULSE 103; TEMP 36.6; O2SAT 100
[2024-09-02] MEDS: Insulin Glargine,Hum.rec.anlog 100 UNIT/ML 10 ML VIAL 65 UNIT SUBCUT (20:46)
[2024-09-02] MEDS: Prazosin HCL 1 MG CAPSULE 3 MG PO (20:47)
[2024-09-02] MEDS: QUEtiapine Fumarate 50 MG TABLET 150 MG PO (20:47)
[2024-09-02 20:53] LABS: Glucose, Whole Blood 189 mg/dL (60-115)
[2024-09-02] MEDS: Benztropine Mesylate 1 MG TABLET PO (20:57)
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
--- NOTE | 2024-09-03 00:56 | PC.NURSE ---
Wrist splint ordered by KYLIE for R wrist. Nursing floatlight loading supervisor notified. Splint has not been delivered to the unit at this time.
[2024-09-03] MEDS: methADONE HCl 20 MG/2 ML ORAL.CONC 60 MG PO (07:56)
[2024-09-03] MEDS: Nicotine Polacrilex 2 MG GUM 4 MG BUCCAL (07:57)
[2024-09-03 07:59] VITALS: BP 131/76; PULSE 84; RESP 17; TEMP 36.3; O2SAT 99
[2024-09-03 07:59] LABS: Glucose, Whole Blood 210 mg/dL (60-115)
[2024-09-03] MEDS: Insulin Lispro 100 UNIT/ML 3 ML VIAL SUBCUT ×4 (08:30→20:56)
[2024-09-03 09:01] LABS: Alanine Aminotransferase 141 U/L (0-31); Albumin Level 3.5 g/dL (3.5-5.0); Alkaline Phosphatase 117 U/L (39-117); Anion Gap 12 (12-20); Aspartate Amino Transferase 200 U/L (5-31); Bilirubin Total 0.6 mg/dL (0.0-1.0); Blood Urea Nitrogen 14 mg/dL (9-16); Calcium 8.8 mg/dL (8.4-10.2); Carbon Dioxide 23 mmol/L (22-29); Chloride 106 mmol/L (96-108); Creatinine Clr Calc Pharmacy 112.3; Estimated Glomerular Filt Rate > 60; Glucose Random 232 mg/dL (60-115); Potassium 3.8 mmol/L (3.3-5.1); Sodium 137 mmol/L (135-145)
[2024-09-03] MEDS: Topiramate 25 MG TABLET 100 MG PO (09:08)
[2024-09-03] MEDS: Amphetamine Mixed Salts 10 MG TABLET 20 MG PO (09:09)
[2024-09-03] MEDS: Gabapentin 400 MG CAPSULE 800 MG PO ×3 (09:09→20:58)
[2024-09-03] MEDS: Docusate Sodium 100 MG CAPSULE PO ×2 (09:10→20:57)
[2024-09-03] MEDS: clonazePAM 1 MG TABLET PO ×2 (09:10→20:58)
[2024-09-03] MEDS: Omeprazole 20 MG CAPSULE.DR PO (09:10)
[2024-09-03] MEDS: metFORMIN HCl 1,000 MG TABLET 1000 MG PO (09:16)
[2024-09-03] MEDS: Lactulose 20 GM/30 ML SOLUTION PO (09:16)
[2024-09-03] MEDS: Promethazine HCL 25 MG TABLET PO (09:23)
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
[2024-09-03 12:29] LABS: Glucose, Whole Blood 279 mg/dL (60-115)
[2024-09-03] MEDS: Dry Mouth Spray 60 ML SPRAY 1 SPRAY MUCOUS MEM (14:49)
[2024-09-03] MEDS: Amphetamine Mixed Salts 10 MG TABLET 30 MG PO (14:50)
[2024-09-03] MEDS: Ipratropium Bromide Nas 0.03 % 30 ML SPRAY 2 SPRAY NOSTRIL-B (14:54)
[2024-09-03 17:13] LABS: Glucose, Whole Blood 221 mg/dL (60-115)
[2024-09-03] MEDS: Rivaroxaban 20 MG TABLET PO (17:17)
[2024-09-03 19:46] VITALS: BP 154/72; PULSE 104; TEMP 36.4; O2SAT 99
[2024-09-03 20:31] LABS: Glucose, Whole Blood 230 mg/dL (60-115)
[2024-09-03] MEDS: Insulin Glargine,Hum.rec.anlog 100 UNIT/ML 10 ML VIAL 65 UNIT SUBCUT (20:56)
[2024-09-03] MEDS: QUEtiapine Fumarate 50 MG TABLET 150 MG PO (20:57)
[2024-09-03] MEDS: Benztropine Mesylate 1 MG TABLET PO (20:57)
[2024-09-03] MEDS: risperiDONE 1 MG TABLET PO (20:57)
[2024-09-03] MEDS: Prazosin HCL 5 MG CAPSULE PO (20:57)
[2024-09-04] MEDS: methADONE HCl 20 MG/2 ML ORAL.CONC 60 MG PO (07:41)
[2024-09-04 08:00] VITALS: BP 119/60; PULSE 94; TEMP 36.8; O2SAT 97
[2024-09-04] MEDS: Omeprazole 20 MG CAPSULE.DR PO (08:00)
[2024-09-04] MEDS: Topiramate 25 MG TABLET 100 MG PO (08:01)
[2024-09-04] MEDS: Amphetamine Mixed Salts 10 MG TABLET 30 MG PO ×2 (08:01→15:25)
[2024-09-04] MEDS: Docusate Sodium 100 MG CAPSULE PO ×2 (08:02→21:40)
[2024-09-04] MEDS: Gabapentin 400 MG CAPSULE 800 MG PO ×3 (08:02→21:41)
[2024-09-04] MEDS: clonazePAM 1 MG TABLET PO ×2 (08:02→21:42)
[2024-09-04] MEDS: metFORMIN HCl 1,000 MG TABLET 1000 MG PO (08:02)
[2024-09-04] MEDS: Ipratropium Bromide Nas 0.03 % 30 ML SPRAY 2 SPRAY NOSTRIL-B ×2 (08:03→17:20)
[2024-09-04 08:21] LABS: Glucose, Whole Blood 209 mg/dL (60-115)
[2024-09-04] MEDS: Insulin Lispro 100 UNIT/ML 3 ML VIAL SUBCUT ×3 (08:37→21:42)
[2024-09-04] MEDS: risperiDONE 1 MG TABLET PO (10:29)
[2024-09-04] MEDS: Benztropine Mesylate 1 MG TABLET PO (10:29)
[2024-09-04 10:31] VITALS: BP 142/87
[2024-09-04] MEDS: cloNIDine HCL 0.1 MG TABLET PO (10:31)
[2024-09-04] MEDS: Acetaminophen 325 MG TABLET 650 MG PO ×2 (12:09→20:17)
[2024-09-04 12:42] LABS: Glucose, Whole Blood 142 mg/dL (60-115)
[2024-09-04] MEDS: Nicotine Polacrilex 2 MG GUM 4 MG BUCCAL (13:53)
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
[2024-09-04 17:00] LABS: Glucose, Whole Blood 197 mg/dL (60-115)
[2024-09-04] MEDS: Rivaroxaban 20 MG TABLET PO (18:03)
[2024-09-04 19:54] VITALS: BP 145/74; PULSE 95; TEMP 36.4; O2SAT 99
[2024-09-04 20:51] LABS: Glucose, Whole Blood 196 mg/dL (60-115)
[2024-09-04] MEDS: Prazosin HCL 5 MG CAPSULE PO (21:40)
[2024-09-04] MEDS: QUEtiapine Fumarate 50 MG TABLET 150 MG PO (21:41)
[2024-09-04] MEDS: Insulin Glargine,Hum.rec.anlog 100 UNIT/ML 10 ML VIAL 65 UNIT SUBCUT (21:42)
[2024-09-05] MEDS: Dry Mouth Spray 60 ML SPRAY 1 SPRAY MUCOUS MEM ×2 (01:32→20:51)
[2024-09-05] MEDS: Ipratropium Bromide Nas 0.03 % 30 ML SPRAY 2 SPRAY NOSTRIL-B ×4 (01:35→20:50)
[2024-09-05] MEDS: Promethazine HCL 25 MG TABLET PO ×2 (05:44→20:50)
[2024-09-05] MEDS: Omeprazole 20 MG CAPSULE.DR PO (06:46)
[2024-09-05] MEDS: methADONE HCl 20 MG/2 ML ORAL.CONC 60 MG PO (07:37)
[2024-09-05 07:59] LABS: Glucose, Whole Blood 234 mg/dL (60-115)
[2024-09-05 08:00] VITALS: BP 143/65; PULSE 90; TEMP 36.4; O2SAT 99
[2024-09-05] MEDS: metFORMIN HCl 1,000 MG TABLET 1000 MG PO (08:44)
[2024-09-05] MEDS: Insulin Lispro 100 UNIT/ML 3 ML VIAL SUBCUT ×3 (08:44→20:51)
[2024-09-05] MEDS: Gabapentin 400 MG CAPSULE 800 MG PO ×3 (08:44→20:50)
[2024-09-05] MEDS: Docusate Sodium 100 MG CAPSULE PO ×2 (08:45→20:50)
[2024-09-05] MEDS: clonazePAM 1 MG TABLET PO ×2 (08:45→20:50)
[2024-09-05] MEDS: Amphetamine Mixed Salts 10 MG TABLET 30 MG PO ×2 (08:45→14:13)
[2024-09-05] MEDS: Topiramate 25 MG TABLET 100 MG PO (08:45)
[2024-09-05 12:10] LABS: Glucose, Whole Blood 115 mg/dL (60-115)
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
[2024-09-05 17:13] LABS: Glucose, Whole Blood 248 mg/dL (60-115)
--- NOTE | 2024-09-05 17:18 | PC.NURSE ---
It was reported to tw that [employer]era was in possession of a vape. When confronted about the vape, [employer] was hesitant to admit she had the vape but then handed it over willingly. The orange fruity bar nicotine vape was placed in her belongings & will be returned upon discharge. Providers aware (Dr Mckeon & Rhonda Fu NP).
[2024-09-05] MEDS: Rivaroxaban 20 MG TABLET PO (17:32)
[2024-09-05 19:50] VITALS: BP 120/79; PULSE 99; TEMP 36.6; O2SAT 98
[2024-09-05 20:24] LABS: Glucose, Whole Blood 174 mg/dL (60-115)
[2024-09-05] MEDS: cloNIDine HCL 0.1 MG TABLET PO (20:50)
[2024-09-05] MEDS: Acetaminophen 325 MG TABLET 650 MG PO (20:50)
[2024-09-05] MEDS: Prazosin HCL 5 MG CAPSULE PO (20:50)
[2024-09-05] MEDS: QUEtiapine Fumarate 50 MG TABLET 150 MG PO (20:50)
[2024-09-05] MEDS: Lactulose 20 GM/30 ML SOLUTION PO (20:51)
[2024-09-05] MEDS: Insulin Glargine,Hum.rec.anlog 100 UNIT/ML 10 ML VIAL 65 UNIT SUBCUT (20:52)
[2024-09-06] MEDS: methADONE HCl 20 MG/2 ML ORAL.CONC 60 MG PO (08:13)
[2024-09-06] MEDS: Insulin Lispro 100 UNIT/ML 3 ML VIAL SUBCUT (08:33)
[2024-09-06] MEDS: metFORMIN HCl 1,000 MG TABLET 1000 MG PO (08:34)
[2024-09-06] MEDS: Gabapentin 400 MG CAPSULE 800 MG PO (08:35)
[2024-09-06] MEDS: Omeprazole 20 MG CAPSULE.DR PO (08:35)
[2024-09-06] MEDS: Topiramate 25 MG TABLET 100 MG PO (08:36)
[2024-09-06] MEDS: Docusate Sodium 100 MG CAPSULE PO (08:37)
[2024-09-06] MEDS: clonazePAM 1 MG TABLET PO (08:37)
[2024-09-06] MEDS: Amphetamine Mixed Salts 10 MG TABLET 30 MG PO (08:38)
[2024-09-06] MEDS: Ipratropium Bromide Nas 0.03 % 30 ML SPRAY 2 SPRAY NOSTRIL-B (08:39)
[2024-09-06 08:42] LABS: Creatinine Clr Calc Pharmacy 106.3; Estimated Glomerular Filt Rate > 60
[2024-09-06 08:45] VITALS: BP 143/73; PULSE 81; RESP 16; O2SAT 98
--- NOTE | 2024-09-06 10:23 | PM.PSYDC ---
DS: Providers Provider Date of admission: 08/29/24 19:02 Primary care physician: None Physician Consults: 08/29/24 20:28 Consult to Hospitalist Routine Comment: Consulting Provider: [facility] Reason For Exam: admission physical 09/01/24 23:50 Consult to Hospitalist Routine Comment: Consulting Provider: [facility] [place] [facility] Reason For Exam: pain on her wrist DS: Diagnosis Discharge Diagnosis (1) PTSD (post-traumatic stress disorder): Status: Acute (2) Polysubstance use disorder: Status: Acute DS: Medications Discharge Medications Home Medications: Home Medications ?Medication ?Instructions ?Recorded ?Confirmed methadone 5 mg tablet 60 mg PO DAILY 05/19/22 08/29/24 Previous Rx's ?Medication ?Instructions ?Recorded benztropine 1 mg tablet 1 mg PO BID PRN eps,dystonia sx #7 09/06/24 tabs clonazepam 1 mg tablet 1 mg PO BID #14 tabs 09/06/24 clonidine HCl 0.1 mg tablet 0.1 mg PO Q4H PRN Anxiety #14 tabs 09/06/24 dextroamphetamine-amphetamine 10 30 mg (3 x 10 mg) PO BID@0800,1500 09/06/24 mg tablet #14 tabs docusate sodium 100 mg capsule 100 mg PO BID #60 caps 09/06/24 gabapentin 800 mg tablet 800 mg PO TID #21 tabs 09/06/24 insulin glargine 100 unit/mL (3 65 unit (0.65 mL) subcut BEDTIME 09/06/24 mL) subcutaneous pen #15 mL ipratropium bromide 21 mcg (0.03 2 spray intranasal TID #30 mL 09/06/24 %) nasal spray metformin 1,000 mg tablet 1,000 mg PO 1XD #30 tabs 09/06/24 nicotine (polacrilex) 2 mg gum 4 mg buccal Q1H PRN Nicotine 09/06/24 Cravings #60 ea omeprazole 20 mg capsule,delayed 20 mg PO DAILY@629 #30 caps 09/06/24 release polyethylene glycol 3350 17 gram 17 g PO DAILY #30 packets 09/06/24 oral powder packet prazosin 5 mg capsule 5 mg PO BEDTIME #14 caps 09/06/24 quetiapine 100 mg tablet (Seroquel) 100 mg PO BEDTIME #14 tabs 09/06/24 quetiapine 50 mg tablet (Seroquel) 50 mg PO BEDTIME #14 tabs 09/06/24 risperidone 1 mg tablet 1 mg PO BID PRN grounding 09/06/24 assistance #14 tabs rivaroxaban 20 mg tablet (Xarelto) 20 mg PO DAILY #14 tabs 09/06/24 topiramate 25 mg tablet 100 mg (4 x 25 mg) PO DAILY #14 09/06/24 tabs Data Data Completed and Pending Completed studies during hospitalization [Text1]: 08/30/24 08/30/24 08/30/24 12:18 17:23 20:26 Sodium Potassium Chloride Carbon Dioxide Anion Gap BUN Creatinine Estim Creat Clear Calc Estimated GFR POC Glucose 244 H 201 H 167 H Random Glucose Calcium Total Bilirubin AST ALT Alkaline Phosphatase Total Protein Albumin 08/31/24 08/31/24 08/31/24 08:19 17:10 20:26 Sodium Potassium Chloride Carbon Dioxide Anion Gap BUN Creatinine Estim Creat Clear Calc Estimated GFR POC Glucose 193 H 223 H 286 H Random Glucose Calcium Total Bilirubin AST ALT Alkaline Phosphatase Total Protein Albumin 09/01/24 09/01/24 09/01/24 08:18 12:04 17:09 Sodium Potassium Chloride Carbon Dioxide Anion Gap BUN Creatinine Estim Creat Clear Calc Estimated GFR POC Glucose 272 H 302 H 172 H Random Glucose Calcium Total Bilirubin AST ALT Alkaline Phosphatase Total Protein Albumin 09/01/24 09/02/24 09/02/24 20:27 08:26 12:18 Sodium Potassium Chloride Carbon Dioxide Anion Gap BUN Creatinine Estim Creat Clear Calc Estimated GFR POC Glucose 240 H 229 H 214 H Random Glucose Calcium Total Bilirubin AST ALT Alkaline Phosphatase Total Protein Albumin 09/02/24 09/02/24 09/03/24 16:52 20:49 07:46 Sodium Potassium Chloride Carbon Dioxide Anion Gap BUN Creatinine Estim Creat Clear Calc Estimated GFR POC Glucose 303 H 189 H 210 H Random Glucose Calcium Total Bilirubin AST ALT Alkaline Phosphatase Total Protein Albumin 09/03/24 09/03/24 09/03/24 08:25 08:25 08:25 Sodium 137 Potassium 3.8 Chloride 106 Carbon Dioxide 23 Anion Gap 12 BUN 14 Creatinine 0.71 0.71 Estim Creat Clear Calc 112.3 112.3 Estimated GFR > 60 POC Glucose Random Glucose Calcium Total Bilirubin AST ALT Alkaline Phosphatase Total Protein Albumin 09/03/24 09/03/24 09/03/24 08:25 12:18 17:01 Sodium Potassium Chloride Carbon Dioxide Anion Gap BUN Creatinine Estim Creat Clear Calc Estimated GFR > 60 POC Glucose 279 H 221 H Random Glucose 232 H Calcium 8.8 Total Bilirubin 0.6 AST 200 H ALT 141 H Alkaline Phosphatase 117 Total Protein 8.0 Albumin 3.5 09/03/24 09/04/24 09/04/24 20:23 08:01 12:25 Sodium Potassium Chloride Carbon Dioxide Anion Gap BUN Creatinine Estim Creat Clear Calc Estimated GFR POC Glucose 230 H 209 H 142 H Random Glucose Calcium Total Bilirubin AST ALT Alkaline Phosphatase Total Protein Albumin 09/04/24 09/04/24 09/05/24 16:56 20:44 07:55 Sodium Potassium Chloride Carbon Dioxide Anion Gap BUN Creatinine Estim Creat Clear Calc Estimated GFR POC Glucose 197 H 196 H 234 H Random Glucose Calcium Total Bilirubin AST ALT Alkaline Phosphatase Total Protein Albumin 09/05/24 09/05/24 09/05/24 11:57 17:02 20:09 Sodium Potassium Chloride Carbon Dioxide Anion Gap BUN Creatinine Estim Creat Clear Calc Estimated GFR POC Glucose 115 248 H 174 H Random Glucose Calcium Total Bilirubin AST ALT Alkaline Phosphatase Total Protein Albumin 09/06/24 08:21 Sodium Potassium Chloride Carbon Dioxide Anion Gap BUN Creatinine 0.75 Estim Creat Clear Calc 106.3 Estimated GFR > 60 POC Glucose Random Glucose Calcium Total Bilirubin AST ALT Alkaline Phosphatase Total Protein Albumin Imaging Diagnostic Imaging Impressions Venous Duplex 08/30/24 16:21 IMPRESSION: No evidence of deep venous thrombosis involving the left lower extremity. Electronically signed by: Tima Phan MD 08/30/2024 04:48 [place] [facility] [place] Summary Time Spent with Patient Time attestation: Total time managing care of this patient today ____ minutes. Discharge Plan Discharge Anticipated Discharge Date/Time: 09/06/24 12:00 Patient Disposition: Detention Discharge Diagnosis: PTSD Polysubstance Use Disorder Referrals: Physician,None [Primary Care Provider] - 1 Week Discharge Medications: New nicotine (polacrilex) 2 mg Gum 4 mg buccal Q1H PRN (Reason: Nicotine Cravings) Qty: 60 0RF clonidine HCl 0.1 mg Tablet 0.1 mg PO Q4H PRN (Reason: Anxiety) Qty: 14 0RF Protocol: Hold for SBP< HOLD for SBP < : 90 polyethylene glycol 3350 17 gram Powder In Packet 17 g PO DAILY Qty: 30 0RF dextroamphetamine-amphetamine 10 mg Tablet 30 mg PO BID@0800,1500 Qty: 14 0RF Rx Instructions: Partial Fill upon patient request. topiramate 25 mg Tablet 100 mg PO DAILY Qty: 14 0RF prazosin 5 mg Capsule 5 mg PO BEDTIME Qty: 14 0RF Protocol: Hold for SBP< HOLD for SBP < : 90 benztropine 1 mg Tablet 1 mg PO BID PRN (Reason: eps,dystonia sx) Qty: 7 0RF docusate sodium 100 mg Capsule 100 mg PO BID Qty: 60 0RF omeprazole 20 mg Capsule,Delayed Release(Dr/Ec) 20 mg PO DAILY@0630 Qty: 30 0RF risperidone 1 mg Tablet 1 mg PO BID PRN (Reason: grounding assistance) Qty: 14 0RF insulin glargine 100 unit/mL (3 mL) insulin pen 65 unit subcut BEDTIME Qty: 15 0RF quetiapine [Seroquel] 100 mg tablet 100 mg PO BEDTIME Qty: 14 0RF Rx Instructions: 150 mg at bedtime quetiapine [Seroquel] 50 mg tablet 50 mg PO BEDTIME Qty: 14 0RF Rx Instructions: 150 mg at bedtime Continued methadone 5 mg Tablet 60 mg PO DAILY ipratropium bromide 21 mcg (0.03 %) Staples,Non-Aerosol 2 spray intranasal TID Qty: 30 0RF Xarelto 20 mg tablet 20 mg PO DAILY Qty: 14 0RF gabapentin 800 mg Tablet 800 mg PO TID Qty: 21 4RF Changed clonazepam 1 mg tablet 1 mg PO BID Qty: 14 0RF metformin 1,000 mg tablet 1,000 mg PO 1XD Qty: 30 0RF Discontinued clonidine HCl 0.1 mg Tablet 0.1 mg PO BEDTIME Qty: 30 0RF Protocol: Hold for SBP< HOLD for SBP < : 90 sennosides-docusate sodium [Senna Plus] 8.6-50 mg Tablet 2 tab PO BID Qty: 120 0RF topiramate 25 mg tablet 100 mg PO 1XD omeprazole 20 mg capsule,delayed release(DR/EC) 20 mg PO 1XD quetiapine 50 mg tablet 100 mg PO BEDTIME insulin glargine [Lantus Solostar U-100 Insulin] 100 unit/mL (3 mL) insulin pen 65 unit subcut DIRECTED lactulose 10 gram/15 mL solution 30 ml PO NEEDED clonidine HCl 0.1 mg Tablet 0.1 mg PO BID PRN (Reason: Anxiety) Discharge Orders: Discharge Order (Routine); Ordered 09/06/24 Ordered By: Ann-Marie Feliciano Diet: Advance to usual diet Activity on Discharge: As tolerated Stand Alone Forms: Patient Portal Discharge page Print Language: Qatari Care Plan Goals: Mood and Behavioral Stabilization Abstinence from Substances Health Concerns: Mood and Behavioral Stabilization Abstinence from Substances Plan of Treatment: Attend scheduled appointments Take medications as directed Assessment: No SI,HI,AH, VH. No sx of acute bonny or psychosis.
[2024-09-06 11:51] LABS: Glucose, Whole Blood 262 mg/dL (60-115)
== END 2024-09-06 11:30 | disposition home or self-care (01) | DRG 882 ==
PROVIDERS: Physician Assistant; Admitting Provider Psychiatry & Neurology Psychiatry; Visit Provider Clinical Nurse Specialist Psychiatric/Mental Health, Adult
DX: F43.10 Post-traumatic stress disorder, unspecified (principal); F11.20 Opioid dependence, uncomplicated; R45.851 Suicidal ideations; F17.210 Nicotine dependence, cigarettes, uncomplicated; F19.90 Other psychoactive substance use, unspecified, uncomplicated; K21.9 Gastro-esophageal reflux disease without esophagitis; K59.00 Constipation, unspecified; E11.41 Type 2 diabetes mellitus with diabetic mononeuropathy; S63.501A Unspecified sprain of right wrist, initial encounter; Y04.8XXA Assault by other bodily force, initial encounter; G43.909 Migraine, unspecified, not intractable, without status migrainosus; Z71.6 Tobacco abuse counseling; Z91.148 Patient's other noncompliance with medication regimen for other reason; Z86.711 Personal history of pulmonary embolism; Z86.718 Personal history of other venous thrombosis and embolism; Z79.4 Long term (current) use of insulin; Z79.01 Long term (current) use of anticoagulants; Z79.84 Long term (current) use of oral hypoglycemic drugs; Z79.899 Other long term (current) drug therapy
CPT/HCPCS: 36415; 73110; 73130; 80053; 82565; 82947; 93971

== ENCOUNTER 2024-08-29 19:02 | Outpatient (BNV) | payer OTHER, SELFPAY | END 2024-08-30 16:21 | PROVIDERS: Admitting Provider Psychiatry & Neurology Psychiatry; Visit Provider Radiology Diagnostic Radiology | DX: R22.42 Localized swelling, mass and lump, left lower limb (principal) | CPT/HCPCS: 93971 ==

== ENCOUNTER 2024-08-29 19:02 | Outpatient (BNV) | payer OTHER, SELFPAY | END 2024-09-02 17:15 | PROVIDERS: Admitting Provider Psychiatry & Neurology Psychiatry; Visit Provider Specialist | DX: M79.641 Pain in right hand (principal) | CPT/HCPCS: 73130 ==

== ENCOUNTER → 2024-08-29 19:02 | Outpatient (BNV) | payer OTHER, SELFPAY | PROVIDERS: Admitting Provider Psychiatry & Neurology Psychiatry; Visit Provider Student in an Organized Health Care Education/Training Program | DX: Z00.8 Encounter for other general examination (principal) | CPT/HCPCS: 99222 ==

== ENCOUNTER → 2024-08-29 19:02 | Outpatient (BNV) | payer OTHER, SELFPAY | PROVIDERS: Admitting Provider Psychiatry & Neurology Psychiatry; Visit Provider Clinical Nurse Specialist Psychiatric/Mental Health, Adult | DX: F43.11 Post-traumatic stress disorder, acute (principal); F19.90 Other psychoactive substance use, unspecified, uncomplicated | CPT/HCPCS: 90792; 99231; 99232 ==